=== PATIENT | female | born 1990 | race Caucasian/White ===

== ENCOUNTER 2016-06-29 23:09 | Inpatient (IN) | payer OTHER ==
[~2016-06-29] VITALS: Ht 149.9 cm; Wt 57.5 kg
[2016-06-29 23:13] VITALS: BP 132/97; PULSE 108; RESP 18; O2SAT 100
[2016-06-30] VITALS (13 sets, daily range): BP systolic 100–128; BP diastolic 70–88; PULSE 81–102; RESP 16–20; O2SAT 93–100
--- NOTE | 2016-06-30 00:06 | ED.REPORT ---
HPI-General Illness Date of Service June 30, 2016 ED Provider: Albaro Chamberlain MD Pt is a 26 y.o. female who presents to the ED c/o hematuria onset 4 days ago. Pt reports associated fever, dysuria, abdominal pain, pelvic pain, bloating, and diarrhea. She reports a hx of kidney stones and states her current symptoms are similar. She endorses meth and IV heroin use. Nursing Notes Stated Complaint: BLOOD IN URINE Chief Complaint: Back Pain or Injury Nursing Notes Reviewed: Yes Allergies: Uncoded Allergies: KCLOR (Allergy, Mild, "Body tenses", 06/29/16) General Time Seen by MD: 23:48 Chief Complaint Other (Hematuria) Hx Obtained From: Patient Arrived By: Walk-in Sudden in Onset?: Yes Onset Occurred: 4 days ago Symptom Duration: Since onset Location: : Abdomen: Back Quality: Painful Severity: Current: Severe Severity: Maximum: Severe Recent Healthcare: No recent doctor visit, No recent hospitalization Past Medical History Past Medical History None reported Past Surgical History None reported Social History Drug Use: IV drugs, Meth, THC Ambulatory Status Independent Review of Systems Bloating Full Review of Systems Constitutional: Reports: Fever GI: Reports: Abdominal pain, Diarrhea Female: Reports: Dysuria, Hematuria, Pelvic pain Musculoskeletal: Reports: Back pain Complete sys rev & neg: except as marked. Physical Exam Vital Signs Vital Signs Date Time Temp Pulse Resp B/P Pulse Ox O2 Delivery O2 Flow Rate FiO2 06/30/16 06:22 36.8 99 18 120/74 99 Room Air 06/30/16 02:24 36.5 102 18 128/88 99 Room Air 06/29/16 23:13 36.0 108 18 132/97 100 Room Air Initial VS: Reviewed, Vital signs abnormal Extremities: Vascular intact, Neuro intact Neurologic: Alert, Oriented, Nonfocal Psychiatric: Mood/affect normal, Behavior normal, Normal thought content General/Constitutional: Awake, Alert Appearance / Presentation: Positive: Pale ENT: Atraumatic, Airway patent Facial puffiness Respiratory / Chest: Atraumatic, Breath sounds NL, Breath sounds = bilat, No respiratory distress Cardiovascular: Regular rhythm, Heart sounds NL, Peripheral circulation NL Heart Rate / Rhythm: Positive: Tachycardia Abdomen: Atraumatic, Soft, No guarding, No rebound Tenderness/Guarding/Rebound: Positive: Tender LLQ..., Tender RLQ... Bowel Sounds / Distention: Positive: Distention mild Back: Atraumatic, Inspection NL Diffuse back tenderness Skin: Warm, Intact Rash / Lesion Notes: Multiple track arthur and black tatooing. Lots of small hotspots and foreign body reactions from muscling, especially in bilateral upper arms. Rash / Lesion Pattern: Positive: Track arthur Interpretation & Diagnostics Lab Results Interpretation Result Diagram: 06/30/16 0115 06/30/16 0115 Test 06/30/16 01:15 06/30/16 02:20 06/30/16 02:30 White Blood Count 9.5th/mm3 (3.8-10.1) Red Blood Count 3.12mil/mm3 (3.90-5.20) Hemoglobin 9.6g/dL (12.0-15.6) Hematocrit 29.9% (35.0-46.0) Mean Corpuscular Volume 95.8fL (81-100) Mean Corpuscular Hemoglobin 30.8pg (27.0-35.0) Mean Corpuscular Hemoglobin Concent 32.1% (32.0-37.0) Red Cell Distribution Width 13.1% (12.3-15.4) Platelet Count 404bil/L (150-400) Neutrophils (%) (Auto) 67.2% (40-74) Lymphocytes (%) (Auto) 24.3% (14-46) Monocytes (%) (Auto) 6.5% (4-12) Eosinophils (%) (Auto) 1.3% (0-5) Basophils (%) (Auto) 0.4% (0-3) Prothrombin Time 11.1sec (8.1-12.5) Prothromb Time International Ratio 1.04ratio Sodium Level 136mEq/L (134-144) Potassium Level 3.5mEq/L (3.5-5.2) Chloride Level 94mEq/L (97-108) Carbon Dioxide Level 26mmol/L (18-29) Blood Urea Nitrogen 15mg/dL (6-20) Creatinine 1.44mg/dL (0.57-1.00) Estimat Glomerular Filtration Rate 62mL/min (>59) Glucose Level 209mg/dL (60-99) Lactic Acid Level 1.0mmol/L (0.4-2.0) Calcium Level 8.8mg/dL (8.5-10.1) Magnesium Level 2.1mg/dL (1.6-2.6) Total Bilirubin 0.2mg/dL (0.0-1.2) Aspartate Amino Transf (AST/SGOT) 104U/L (0-50) Alanine Aminotransferase (ALT/SGPT) 62U/L (0-32) Alkaline Phosphatase 259U/L (25-150) Total Protein 8.5g/dL (6.4-8.4) Albumin 4.0g/dL (3.4-5.0) Lipase 13U/L (13-60) Hold Urine Received (Received) Urine Color Bloody (YELLOW) Urine Appearance Cloudy (CLEAR,HAZY) Urine pH 5.5 (5.0-8.0) Urine Specific Lafe 1.025 (1.003-1.035) Urine Protein 100mg/dL (NEG,TRACE) Urine Glucose (UA) Negativemg/dL (NEGATIVE) Urine Ketones Negativemg/dL (NEGATIVE) Urine Occult Blood Large (NEGATIVE) Urine Nitrite Positive (NEGATIVE) Urine Bilirubin Negative (NEGATIVE) Urine Urobilinogen Normalmg/dL (NORMAL) Urine Leukocyte Esterase Negative (NEGATIVE) Urine RBC Packed/hpf (0-2) Urine WBC 11-50/hpf (0-5) Urine Epithelial Cells Few/hpf (NONE-MOD) Urine Crystals None seen (NONE SEEN) Urine Bacteria Moderate/hpf (NONE-FEW) Urine Hyaline Casts None/lpf (NONE) Urine Granular Casts None seen (NONE SEEN) Urine Waxy Casts None seen (NONE SEEN) Urine Red Blood Cell Casts None seen (NONE SEEN) Urine White Blood Cell Casts None seen (NONE SEEN) Urine Mucus None seen (None Seen) Urine Trichomonas None seen (NONE SEEN) Urine Yeast None (NONE SEEN) Urinalysis Comment Urine Culture Reflexed Not indicated Lab Results Interpretation: Anemia, elevated creatinine,, elevated nonfasting glucose, normal lactic acid. Urinalysis is consistent with UTI. Drug Screen / Level Interp Urine positive opiate, Urine positive THC, Urine pos amphetamines CT Abd / Pelvis Interpretation IMPRESSION: 2mm right renal stone. Enlarged right kidney with perinephric stranding, pyelonephritis should be considered in the proper clinical setting. Diffuse bladder wall thickening. In the proper clinical setting, cystitis should be considered. Radiologist: Lei Feliz MD Re-Eval/Medical Decision Med Decision/Clinical Course 26-year-old female presents with hematuria and fevers and just general malaise. She is found to be quite anemic, baseline uncertain. She also has a UTI. CT KUB was done to rule out an obstructing stone and was negative. It did show signs of urinary tract infection/pileup. We were unable to obtain venous access. I feel the PICC line would be wiser choice than central line for this patient. She will get one placed this morning. She was given first dose of and about X IM. She will be admitted to the hospital service. Please see inpatient chart for details. Source of Hx: Old records Time of Eval: 00:01 Re-Evaluation/Progress Note: Discussed need for CT imaging, pt understands and agrees with plan. Time of Eval: 05:41 Re-Evaluation/Progress Note: Pt rechecked. Pt is resting comfortably. Discussed plan for admit, pt understands and agrees with plan. Consultation : Referral / Consult Name: Lance Mendiola MD Consulted With: Hospitalist Call Returned at: 05:51 Vacation Sales Advisor: Accepts admit Note: Discussed pt condition. Accepts admit. He would like pt to have a PICC line in place before transfer to the floor. Counseled Regarding: Diagnosis, Lab results, Need for follow-up, When/why to return to ED Discharge & Departure Primary Impression: UTI (urinary tract infection) Urinary tract infection type: acute pyelonephritis Qualified Code: N10 - Acute pyelonephritis Additional Impressions: Polysubstance abuse Anemia Anemia type: unspecified type Qualified Code: D64.9 - Anemia, unspecified Disposition: ADMITTED TO HOSPITAL Discharge Condition All VS Reviewed: Yes Condition: Improved Referrals: [facility] (PCP) Ninfa Attestation Portions of this note were transcribed by Genie Velasquez. I, Dr. Chamberlain personally performed the history, physical exam and medical decision-making; I reviewed and confirmed the accuracy of the information in the transcribed note. Signed by: Ninfa Gómez, 06/30/16 and 0525 copies to: [facility] Albaro Chamberlain MD June 30, 2016 00:05 GENIE VELASQUEZ June 30, 2016 00:13
[2016-06-30 01:24] LABS: BASOPHILS % (AUTO) 0.4 % (0-3); EOSINOPHILS % (AUTO) 1.3 % (0-5); MONOCYTES % (AUTO) 6.5 % (4-12); Mean Corpuscular Hemoglobin 30.8 pg (27.0-35.0); Mean Corpuscular Volume 95.8 fL (81-100); NEUTROPHILS % (AUTO) 67.2 % (40-74); Platelet Count 404 bil/L (150-400)
[2016-06-30] MEDS ORDERED: cefTRIAXone Inj 1,000 MG, Lidocaine PF 1% Inj 2.1 ML in Syringe 0 EACH IM ONE (01:35)
[2016-06-30 01:41] LABS: INR 1.04 ratio
[2016-06-30 02:14] LABS: Magnesium 2.1 mg/dL (1.6-2.6)
[2016-06-30 03:52] LABS: APPEARANCE,URINE CLOUDY (CLEAR,HAZY); COLOR,URINE BLOODY (YELLOW); PH,URINE 5.5 (5.0-8.0)
[2016-06-30 03:53] LABS: OCCULT BLOOD,URINE LARGE (NEGATIVE); UROBILINOGEN,URINE NORMAL (NORMAL)
[2016-06-30] MEDS ORDERED: Ondansetron 2 mg/mL 2 mL Inj IVPUSH PRN (06:50)
[2016-06-30] MEDS ORDERED: Alum-Mag Hydrox-Simeth 30 mL Suspension PO PRN ×2 (06:50→09:05)
[2016-06-30] MEDS ORDERED: Sodium Chloride LOK Flush 10 mL Syringe IVFLUSH PRN ×2 (06:50)
--- NOTE | 2016-06-30 08:00 | DRSVH ---
PROCEDURE: CT KUB ([id number]) INDICATIONS: hematuria TECHNIQUE: Noncontrast 5 mm thick sections acquired from the diaphragms to the symphysis. 5 mm thick coronal an d sagittal reformats were then performed. For radiation dose reduction, the following was used: aut omated exposure control, adjustment of mA and/or kV according to patient size. COMPARISON: None. FINDINGS: Image quality: Excellent. Lung bases: Lung bases are clear. Heart size is normal. Urinary system: Left kidney is normal in size. Right kidney is somewhat prominent with some stranding around it. There is a 2 mm central nonobstructing right renal calculus. Hydronephrosis of either kid aide is not appreciated.. Both ureters appear non-dilated throughout their expected courses. Bladder wall thickness is normal; no calcified bladder stones. Other solid organs: Liver and spleen are normal in size. Gallbladder is within normal limits. Panc reas is normal in contours. No adrenal nodules. Peritoneum and bowel: Unenhanced bowel loops demonstrate normal wall thickness and caliber. No free fluid or air. Nodes and vessels: No retroperitoneal or mesenteric adenopathy by size criteria. Aorta and inferior vena cava are normal in caliber. Abdominal wall: No ventral hernias. Pelvis: No free pelvic fluid. No inguinal hernias or adenopathy. Bones: No suspicious bony lesions. No vertebral body compression fractures. IMPRESSION: 1. Slightly prominent right kidney with stranding around it in the retroperitoneum. There is also sli ght increased density in the mesentery in the stranding appears to arise from the region of the kidne y extends down in the retroperitoneum in the area of the cecum. No appendix is identified normal or a bnormal. Hydronephrosis is not appreciated and no obstruction or ureteral stone is seen. There is a 2 mm central nonobstructing right renal calculus. These findings would suggest right-sided pyelonephritis. Clinical correlation needed. 2. Bilateral prominent appearing ovaries with multiple small probably follicular type cysts. Dictated by: Petros Buchanan M.D. on 06/30/2016 at 7:50 this report corresponds to the findings of niko murphy preliminary NSR report. Approved by: Petros Buchanan M.D. on 06/30/2016 at 7:58
[2016-06-30] MEDS ORDERED: 0.9% Sodium Chloride 1,000 ML IV SCH (09:05)
[2016-06-30 09:36] LABS: TROPONIN T 0.016 ug/L (0.0-0.011)
[2016-06-30 09:47] LABS: Magnesium 2.2 mg/dL (1.6-2.6); Phosphorus 2.9 mg/dL (2.5-4.9)
[2016-06-30] MEDS: Piperacillin-Tazo 3.375 Gm Inj 3.375 GM in Dextrose 5% Minibag Plus 50 ML IV SCH ×3 (09:50→23:49)
--- NOTE | 2016-06-30 10:38 | PCM.HPMED ---
Subjective Date of Service June 30, 2016 Primary Provider: Admitting Physician: Mauro Ragland MD Primary Care Physician: [facility] Attending Physician: Mauro Ragland MD Admit Status: From the Emergency Department, Full Admit, Critical Care Chief Complaint: Hematuria History of Present Illness: Miri Beasley is a 26 year old woman with past medical history significant for kidney stones since age 9 requiring percutaneous drainage, recurrent pyelonephritis, as well as polysubstance abuse including heroin IVDU who presented to the [facility] ED with hematuria for 6 days. She also note dysuria that was very severe however she did not come in because she was afraid she "was dying." She does not know the cause of her recurrent kidney stones. She notes fevers, chills, nausea, vomiting, dizziness but denies any loss of consciousness. Her boyfriend who accompanies her states she appears quite pale. She denies any chest pain, shortness of breath, cough, or rash. In the ED the patient was noted to be tachycardic. She was given one dose of Rocephin IM. Review of Systems: A comprehensive review of systems was conducted with the patient and found to be negative except as above in the History of Present Illness. Allergies Uncoded Allergies: KCLOR (Allergy, Mild, "Body tenses", 06/29/16) Home Medications She is supposed to be taking Levothyroxine 175 mcg but has not been. PMH Recurrent kidney stones Recurrent pyelonephritis IVDU Hypothyroidism Surgical History Appendicitis Lithotripsy Family History No family history of kidney stones Social History Hx Alcohol Use: No Hx Substance Use: Yes (states she does marijuana) Hx Tobacco Use: Yes Smoking Status: Current Every Day Smoker, Heavy Tobacco Smoker Living Arrangement: Homeless Exam Vital Signs Vital Sign - Last Date Time Temp Pulse Resp B/P Pulse Ox O2 Delivery O2 Flow Rate FiO2 06/30/16 08:43 100 Room Air 06/30/16 08:20 36.3 95 16 100/70 Exam General: In moderate acute distress, pale, appropriately interactive, laying in a hospital bed HEENT: Normocephalic, atraumatic. External ears without defect. Pupils equal, round, and reactive to light and accommodation. Anicteric sclerae, moist conjunctivae, and no lid lag. Oropharynx free of erythema and cobble stoning with moist mucosa. Neck: Supple with full range of motion. No jugular venous distension. No bruits. No lymphadenopathy or thyromegaly. Cardiovascular: Regular rhythm with no murmurs, rubs, or gallops appreciated. Tachycardia. Pulmonary: Clear to auscultation bilaterally with no crackles, wheezes, or rhonchi. Normal respiratory effort with no use of accessory muscles. Abdomen: Bowel tones present. Soft, nondistended. No hepatosplenomegaly or masses appreciated. Tenderness over suprapubic area. CVA tenderness. Extremities: No clubbing, cyanosis, edema, or lymphadenopathy appreciated. Skin: Normal temperature, turgor, and texture. Diffuse lacy rash. Bruising on the knees and arms. Track arthur on bilateral arms. Neurological: Cranial nerves grossly intact. Normal muscle strength, tone, and bulk. Reflexes, coordination, and sensory function within normal limits. No known gait impairment. Psychiatric: Anxious, afraid. Alert and oriented to person, place, and time. Lab and Diagnostics Result Diagram: 06/30/1611406/30/16114 X-Rays, CTs and MRIs CT KUB IMPRESSION: 1. Slightly prominent right kidney with stranding around it in the retroperitoneum. There is also slight increased density in the mesentery in the stranding appears to arise from the region of the kidney extends down in the retroperitoneum in the area of the cecum. No appendix is identified normal or abnormal. Hydronephrosis is not appreciated and no obstruction or ureteral stone is seen. There is a 2 mm central nonobstructing right renal calculus. These findings would suggest right-sided pyelonephritis. Clinical correlation needed. 2. Bilateral prominent appearing ovaries with multiple small probably follicular type cysts. Dictated by: Petros Buchanan M.D. on 06/30/2016 at 7:50 this report corresponds to the findings of the preliminary NSR report. Assessment & Plan Miri Beasley is a 26 year old woman with past medical history significant for kidney stones since age 9 requiring percutaneous drainage, recurrent pyelonephritis, as well as polysubstance abuse including heroin IVDU who presented to the [facility] ED with hematuria for 6 days. Sepsis secondary to pyelonephritis evidenced by HR of 106, T 36.0 -2 L NS bolus and will reassess -First lactate negative, will recheck -Blood cultures, urine cultures, procalcitonin Severe pyelonephritis, likely secondary to nephrolithiasis, complicated by acute kidney injury -Given one dose of ceftriaxone, will give Zosyn for broader coverage -Presenting with hematuria, will continue to monitor Hgb Acute kidney injury -May be multifactorial from prerenal azotemia, sepsis, pyelonephritis -IVF as above -Trend Cr Polysubstance abuse -Social work consult -Patient would like to discuss methadone, for now will treat pain with IV morphine in the acute phase Livido reticularis, chronic -Possibly due to thyroid disease. Hepatitis is on the differential -Will check hepatitis panel, especially in the setting of elevated LFTs, HIV Elevated total protein -Possibly representing immunoglobulins and acute reaction, will trend. Elevated troponin of uncertain significance -In the setting of IVDU may represent endocarditis, will recheck tomorrow -EKG, CXR, blood cultures Nicotine use -Patch offered Patient is admitted under observation status with expected length of stay less than 2 midnights due to severity of presenting symptoms, risk of adverse event, and complexity of treatment plan. Time spent 60 min Attending Statement Patient seen and examined with house staff. Agree with all attached documentation. Sania Gillette DO June 30, 2016 09:10 Mauro Ragland MD June 30, 2016 14:31
--- NOTE | 2016-06-30 11:34 | DRSVH ---
PROCEDURE: X-RAY CHEST ONE VIEW ([id number]) INDICATIONS: endocarditis TECHNIQUE: One view of the chest was acquired. COMPARISON: None. FINDINGS: Surgical changes and devices: None. Lungs and pleura: No pleural effusions or pneumothorax. Lungs are clear. Mediastinum: Mediastinal contours appear normal. Heart size is normal. Bones and chest wall: No suspicious bony lesions. Overlying soft tissues appear unremarkable. IMPRESSION: No acute cardiopulmonary disease. Dictated by: Ryan Pruitt [facility] Interpreted: Petros Buchanan MD on 06/30/2016 at 11:33 Transcribed by: JAYME on 06/30/2016 at 11:34 Approved by: Petros Buchanan M.D. on 06/30/2016 at 12:16
[2016-06-30] MEDS ORDERED: MetoCLOpramide 5 mg/mL 2 mL Inj ONE (13:17)
[2016-06-30] MEDS ORDERED: Ondansetron 2 mg/mL 2 mL Inj ONE (13:17)
[2016-06-30] MEDS ORDERED: Dexamethasone 4 mg/mL Inj ONE (13:17)
[2016-06-30] MEDS ORDERED: Propofol 10,000 mCg/mL 20 mL Inj ONE (13:17)
[2016-06-30 13:18] LABS: APPEARANCE,URINE CLOUDY (CLEAR,HAZY); COLOR,URINE DARK YELLOW (YELLOW); PH,URINE 5.5 (5.0-8.0)
[2016-06-30 13:19] LABS: OCCULT BLOOD,URINE LARGE (NEGATIVE)
[2016-06-30 13:20] LABS: UROBILINOGEN,URINE NORMAL (NORMAL)
[2016-06-30] MEDS ORDERED: LEVO125T2 PO (15:23)
[2016-06-30] MEDS: 0.9% Sodium Chloride 1,000 ML IV SCH ×3 (17:19→23:50)
[2016-06-30] MEDS: Sodium Chloride LOK Flush 10 mL Syringe IVFLUSH SCH ×2 (17:22→23:50)
[2016-06-30] MEDS: Heparin 5,000 Unit/mL Inj SUBQ SCH ×2 (17:22→23:50)
[2016-07-01 03:04] VITALS: BP 104/73; PULSE 84; RESP 16; O2SAT 92
[2016-07-01 03:26] LABS: BASOPHILS % (AUTO) 0.3 % (0-3); EOSINOPHILS % (AUTO) 2.3 % (0-5); MONOCYTES % (AUTO) 6.8 % (4-12); Mean Corpuscular Hemoglobin 30.4 pg (27.0-35.0); Mean Corpuscular Volume 97.5 fL (81-100); NEUTROPHILS % (AUTO) 58.3 % (40-74); Platelet Count 359 bil/L (150-400)
[2016-07-01] MEDS: Ondansetron 2 mg/mL 2 mL Inj IVPUSH PRN ×3 (04:53→20:48)
[2016-07-01] MEDS: 0.9% Sodium Chloride 1,000 ML IV SCH ×3 (06:32→22:40)
[2016-07-01 08:00] VITALS: BP 107/77; PULSE 78; PULSE 83; RESP 18; O2SAT 96
[2016-07-01 08:26] LABS: Bilirubin, Direct 0.2 mg/dL (0.0-0.3)
[2016-07-01] MEDS: Piperacillin-Tazo 3.375 Gm Inj 3.375 GM in Dextrose 5% Minibag Plus 50 ML IV SCH ×3 (09:18→23:46)
[2016-07-01] MEDS: Sodium Chloride LOK Flush 10 mL Syringe IVFLUSH SCH ×3 (09:21→20:49)
[2016-07-01] MEDS: Heparin 5,000 Unit/mL Inj SUBQ SCH ×3 (09:21→23:46)
--- NOTE | 2016-07-01 11:17 | PCM.PNMED ---
Subjective Date of Service July 01, 2016 Subjective Miri Beasley is a 26 year old woman with past medical history significant for kidney stones since age 9 requiring percutaneous drainage, recurrent pyelonephritis, as well as polysubstance abuse including heroin IVDU who presented to the [facility] ED with hematuria for 6 days. Now under treatment for sepsis, pyelonephritis. Hospital day #2. Overnight: No acute events. Today: She states she is feeling better. Her hematuria has resolved but the dysuria, suprapubic pain and back pain continue. She still feels quite fatigued and nauseous. She denies any fevers or chills. The remainder of ROS is negative except as noted above. Exam Vital Signs Vital Sign - Last Date Time Temp Pulse Resp B/P Pulse Ox O2 Delivery O2 Flow Rate FiO2 07/01/16 08:00 78 07/01/16 08:00 36.6 18 107/77 96 Room Air Intake and Output 06/30/16 06/30/16 07/01/16 Cumulative From/Thru 15:00 23:00 07:00 06/29/16 23:13 - 07/01/16 06:01 Intake Total 360 ml 4161 ml 2265 ml 6786 ml Output Total 250 ml 250 ml 800 ml 1300 ml Balance 110 ml 3911 ml 1465 ml 5486 ml Intake Oral 360 ml 760 ml 836 ml 1956 ml IV Total 3401 ml 1429 ml 4830 ml Output Urine Total 250 ml 250 ml 800 ml 1300 ml # Voids 3 3 Exam General: In no acute distress, pale, appropriately interactive, laying in a hospital bed HEENT: Normocephalic, atraumatic. External ears without defect. Pupils equal, round, and reactive to light and accommodation. Anicteric sclerae, moist conjunctivae, and no lid lag. Oropharynx free of erythema and cobble stoning with moist mucosa. Periorbital edema. Neck: Supple with full range of motion. No jugular venous distension. No bruits. No lymphadenopathy or thyromegaly. Cardiovascular: Regular rate and rhythm with no murmurs, rubs, or gallops appreciated. Pulmonary: Clear to auscultation bilaterally with no crackles, wheezes, or rhonchi. Normal respiratory effort with no use of accessory muscles. Abdomen: Bowel tones present. Soft, nondistended. No hepatosplenomegaly or masses appreciated. Tenderness over suprapubic area. CVA tenderness bilaterally. Extremities: No clubbing, cyanosis, edema, or lymphadenopathy appreciated. Pretibial edema. Skin: Normal temperature, turgor, and texture. Diffuse lacy rash. Bruising on the knees and arms. Track arthur on bilateral arms. Neurological: Cranial nerves grossly intact. Normal muscle strength, tone, and bulk. Reflexes, coordination, and sensory function within normal limits. No known gait impairment. Psychiatric: Anxious, afraid. Alert and oriented to person, place, and time. IVs and Medications Medications Reviewed: Medications were reviewed in detail Lab and Diagnostics Result Diagram: 07/01/1631907/01/16 032 X-Rays, CTs and MRIs CT KUB IMPRESSION: 1. Slightly prominent right kidney with stranding around it in the retroperitoneum. There is also slight increased density in the mesentery in the stranding appears to arise from the region of the kidney extends down in the retroperitoneum in the area of the cecum. No appendix is identified normal or abnormal. Hydronephrosis is not appreciated and no obstruction or ureteral stone is seen. There is a 2 mm central nonobstructing right renal calculus. These findings would suggest right-sided pyelonephritis. Clinical correlation needed. 2. Bilateral prominent appearing ovaries with multiple small probably follicular type cysts. Dictated by: Petros Buchanan M.D. on 06/30/2016 at 7:50 this report corresponds to the findings of the preliminary NSR report. X-RAY CHEST ONE VIEW IMPRESSION: No acute cardiopulmonary disease. Dictated by: Ryan Pruitt [facility] Interpreted: Petros Buchanan MD on 06/30/2016 at 11:33 Assessment & Plan Miri Beasley is a 26 year old woman with past medical history significant for kidney stones since age 9 requiring percutaneous drainage, recurrent pyelonephritis, as well as polysubstance abuse including heroin IVDU who presented to the [facility] ED with hematuria for 6 days. Now under treatment for sepsis, pyelonephritis. Hospital day #2. Sepsis secondary to pyelonephritis evidenced by HR of 106, T 36.0 -3 L NS bolus received, now on 150 mL/hr maintenance NS -lactate initially trended up then normalized. -Blood cultures, urine cultures pending -Procalcitonin negative, which is not always indicative of an absence of infection. Severe pyelonephritis, likely secondary to nephrolithiasis, complicated by acute kidney injury -Given one dose of ceftriaxone, will give Zosyn for broader coverage -Presenting with hematuria, now resolved -Awaiting culture results and sensitivities Acute kidney injury, present on admission, improving -May be multifactorial from prerenal azotemia, sepsis, pyelonephritis -IVF as above -Trend Cr Polysubstance abuse -Social work consult, she is scheduled to see a brownfield redevelopment specialist -Patient would like to discuss methadone, for now will treat pain with IV morphine in the acute phase Livido reticularis, chronic -Possibly due to thyroid disease. Hepatitis is on the differential -Will check hepatitis panel, especially in the setting of elevated LFTs, HIV Protein malnutrition -Likely due to poor intake, will order nutritional consultation -Total protein decreased once patient is fluid resuscitated Elevated troponin of uncertain significance -In the setting of IVDU may represent endocarditis however EKG and CXR were unremarkable Nicotine use -Patch offered Elevated liver enzymes -Alk phos increased more today, patient denies any abdominal pain and in the setting of a normal bilirubin doubtful to represent biliary tree pathology -Will continue to monitor -Hepatitis panel pending DISPO: Anticipate patient will be in house for 2-3 more days. Attending Statement Patient seen and examined with house staff. Agree with all attached documentation. Sania Gillette DO July 01, 2016 11:17 Mauro Ragland MD July 05, 2016 09:06
[2016-07-01 12:00] VITALS: BP 117/87; PULSE 93; RESP 18; O2SAT 96
[2016-07-01 16:00] VITALS: BP 100/72; PULSE 82; RESP 18; O2SAT 86
[2016-07-01 16:05] VITALS: O2SAT 92
--- NOTE | 2016-07-01 19:23 | PCM.CHPMED ---
Subjective Date of Service: July 01, 2016 Provider requesting consult: Sania Gillette DO Primary Physician: Admitting Physician: aMuro Ragland MD Primary Care Physician: [facility] Attending Physician: Mauro Ragland MD Chief Complaint: Chief Complaint: Initial Endocrinology Consultation: Asked by to consult regarding this 26-year-old woman with chronic hypothyroidism who presents with myxedema in the setting of acute pyelonephritis. Patient currently complains of fatigue, confusion and flank/abdominal discomfort. History of Present Illness: The patient carries a diagnosis of hypothyroidism which began at age 7. She is taken thyroid hormone since that time. She has also experience substance abuse and psychological difficulties; hence, her compliance with thyroxine replacement therapy has been variable. She states that she has been without thyroid hormone for at least 2 months. She has difficulty describing hypothyroid symptoms but feels that her current mental confusion and fatigue may be due to low thyroid hormone. She is otherwise symptomatic with flank pain and abdominal discomfort related to recurrent urinary infection. On thyroid review of systems: She feels mentally sluggish. She endorses variable heat and cold intolerance. She notes increased puffiness around her eyes which is not normal for her. Her skin is dry. She does not endorse constipation. Menstrual periods have been irregular for many years. Review of Systems: Complete review of systems was performed. Significant findings are noted in history of present illness. Incidental findings include back pain, hand erythema with occasional cyanotic appearance. PMH Past Medical History # Hypothyroidism # Nephrolithiasis - status post percutaneous nephrostomy # Recurrent pyelonephritis # polysubstance abuse # Tobacco dependence Allergies: Coded Allergies: cefaclor (Verified Allergy, Intermediate, muscle rigidity, 06/30/16) Family History Family History No thyroid disease. No other autoimmune diseases. Social History Hx Alcohol Use: NoHx Substance Use: Yes (IV heroin, meth, marijuana)Hx Tobacco Use: Yes Smoking Status: Current Every Day Smoker Heavy Tobacco Smoker Living Arrangement: Homeless Exam Vital Signs Vital Sign - Last Date Time Temp Pulse Resp B/P Pulse Ox O2 Delivery O2 Flow Rate FiO2 07/01/16 16:05 92 Nasal Cannula 2.00 07/01/16 16:00 36.9 82 18 100/72 Intake and Output 06/30/16 06/30/16 07/01/16 Cumulative From/Thru 15:00 23:00 07:00 06/29/16 23:13 - 07/01/16 06:01 Intake Total 360 ml 4161 ml 2265 ml 6786 ml Output Total 250 ml 250 ml 800 ml 1300 ml Balance 110 ml 3911 ml 1465 ml 5486 ml Intake Oral 360 ml 760 ml 836 ml 1956 ml IV Total 3401 ml 1429 ml 4830 ml Output Urine Total 250 ml 250 ml 800 ml 1300 ml # Voids 3 3 General: Pale and simona appearing, no acute distress HEENT: Marked periorbital edema, sclerae anicteric, oral mucosa moist Neck: no JVD, thyroid is nonpalpable Chest: clear to auscultation Cardiac: S1S2, no murmur Abdomen: BS normal, non-tender Extremities: Hands with palmar and digital erythema, no pitting edema; skin is dry Neuro: A&O with slightly slow, cranial nerves symmetric, motor strength 5/5, coordination normal; reflexes are diminished, with very prolonged relaxation phase Lab and Diagnostics Labs TSH = 427, free T4 = less than 0.1 Result Diagram: 07/01/16 0320 07/01/16 0320 Assessment & Plan Assessment Ms. Beasley presents with myxedema manifesting as mental sluggishness, but not does not have myxedema coma for which reduced mental status with severe bradycardia, hypothermia and hypotension would be diagnostic. Although her physical findings are impressive (periorbital edema, low pitched voice, hyporeflexive), and her TSH elevation is extraordinary, she seems clinically stable. For this reason aggressive parenteral thyroid supplementation that is recommended for myxedema coma (e.g. 500-800 g intravenous levothyroxine or 25 g every 12 hours liothyronine) is unlikely to provide significant benefit. I see no signs of significant GI dysfunction, hence she can continue with oral thyroxine replacement. I think several days of loading dose would be helpful in expediting her return to her functional status. Recommendations: - Levothyroxine 300 mg daily 3 days - Return to her usual supplement thereafter - Observe caution and minimize use of hepatic metabolized anesthetic or sedative medications - Overt parenteral hypotonic solutions due to risk of hyponatremia - Encouraged outpatient compliance with levothyroxine, and follow-up with her usual primary care provider Thank you for this interesting consult. Please contact me with any questions at [phone]. Problems: Time spent 50 minutes Jaciel Samuel MD July 01, 2016 19:24
[2016-07-01 20:41] VITALS: BP 99/80; PULSE 89; RESP 18; O2SAT 97
[2016-07-02] VITALS (9 sets, daily range): BP systolic 104–119; BP diastolic 70–86; PULSE 69–83; RESP 12–18; O2SAT 91–100
[2016-07-02 02:09] LABS: Hepatitis A Antibody IgM Negative (Negative); Hepatitis B Core Antibody IgM Negative (Negative)
[2016-07-02] MEDS: 0.9% Sodium Chloride 1,000 ML IV SCH ×2 (05:22→16:34)
[2016-07-02] MEDS: Heparin 5,000 Unit/mL Inj SUBQ SCH ×2 (08:30→16:56)
[2016-07-02] MEDS: Sodium Chloride LOK Flush 10 mL Syringe IVFLUSH SCH ×2 (08:30→16:30)
[2016-07-02] MEDS: Piperacillin-Tazo 3.375 Gm Inj 3.375 GM in Dextrose 5% Minibag Plus 50 ML IV SCH ×2 (08:36→16:30)
[2016-07-02] MEDS ORDERED: Magnesium Hydroxide 10 mL Oral Concentration PO ONE (15:40)
[2016-07-02 16:18] LABS: BASOPHILS % (AUTO) 0.8 % (0-3); EOSINOPHILS % (AUTO) 1.7 % (0-5); Mean Corpuscular Hemoglobin 30.2 pg (27.0-35.0); Mean Corpuscular Volume 97.9 fL (81-100); NEUTROPHILS % (AUTO) 59.3 % (40-74); Platelet Count 323 bil/L (150-400)
[2016-07-02] MEDS ORDERED: cefTRIAXone Inj 1,000 MG, Lidocaine PF 1% Inj 2.1 ML in Syringe 0 EACH IM ONE (17:00)
--- NOTE | 2016-07-02 17:24 | PCM.PNMED ---
Subjective Date of Service July 02, 2016 Subjective Miri Beasley is a 26 year old woman with past medical history significant for kidney stones since age 9 requiring percutaneous drainage, recurrent pyelonephritis, as well as polysubstance abuse including heroin IVDU who presented to the [facility] ED with hematuria for 6 days. Now under treatment for sepsis, pyelonephritis, myxedema. Hospital day #3 Overnight: No acute events. Today: She states she is feeling better today and she has more energy. She notes however that she still has bilateral flank pain as well as suprapubic tenderness and dysuria but this has improved. Periorbital edema is better as well; she states she can open her eyes more easily. She does note that she is very constipated. She denies any fevers, chills, shortness of breath, chest pain, nausea, vomiting or diarrhea. Today she lost her IV site after a multitude of attempts we were unable to restart another IV. The remainder of ROS is negative except as noted above. Exam Vital Signs Vital Sign - Last Date Time Temp Pulse Resp B/P Pulse Ox O2 Delivery O2 Flow Rate FiO2 07/02/16 16:16 36.9 78 16 119/81 100 Room Air 07/02/16 05:01 2.00 Intake and Output 07/01/16 07/01/16 07/02/16 Cumulative From/Thru 15:00 23:00 07:00 06/29/16 23:13 - 07/02/16 06:44 Intake Total 2920 ml 1707 ml 73783 ml Output Total 1800 ml 1230 ml 4330 ml Balance 1120 ml 477 ml 7083 ml Intake Oral 1120 ml 120 ml 3196 ml IV Total 1800 ml 1587 ml 8217 ml Output Urine Total 1800 ml 1230 ml 4330 ml # Voids 3 Exam General: In no acute distress, pale, appropriately interactive, laying in a hospital bed, She appears in better spirits today and is smiling HEENT: Normocephalic, atraumatic. External ears without defect. Pupils equal, round, and reactive to light and accommodation. Anicteric sclerae, moist conjunctivae, and no lid lag. Oropharynx free of erythema and cobble stoning with moist mucosa. Periorbital edema has improved today. Neck: Supple with full range of motion. No jugular venous distension. No bruits. No lymphadenopathy or thyromegaly. Cardiovascular: Regular rate and rhythm with no murmurs, rubs, or gallops appreciated. Pulmonary: Clear to auscultation bilaterally with no crackles, wheezes, or rhonchi. Normal respiratory effort with no use of accessory muscles. Abdomen: Bowel tones present. Soft, nondistended. No hepatosplenomegaly or masses appreciated. Tenderness over suprapubic area. CVA tenderness bilaterally. Extremities: No clubbing, cyanosis, edema, or lymphadenopathy appreciated. Pretibial edema. Skin: Normal temperature, turgor, and texture. Diffuse lacy rash. Bruising on the knees and arms. Track arthur on bilateral arms. A small developing abscess on the left deltoid. Neurological: Cranial nerves grossly intact. Normal muscle strength, tone, and bulk. Reflexes, coordination, and sensory function within normal limits. No known gait impairment. Psychiatric: Normal mood and affect. Alert and oriented to person, place, and time. IVs and Medications Medications Reviewed: Medications were reviewed in detail Lab and Diagnostics Result Diagram: 07/02/16 1610 07/02/16 1328 Microbiology SUKHDEEP CULT URINE Final 07/02/16-0906 Organism 1 ESCHERICHIA COLI U COLONY COUNT/QUANTITY >100,000 CFU/ml Cefazolin-predicts results for the oral agents, cefaclor,cefdinir, cefpodoximen, cefprozil, cefuroximne axetil, cephalexin and loracarbed when used for therapy of uncomplicated UTI's due to E. coli, K. pneumoniae, and Proteus mirabilis. Cefpodoxime, cefdinir and cefuroxime axetil may be tested individually because some isolates may be susceptible to these agents while testing resistant to cefazolin. (CLSI J094-T58 pg 53) 1. ESCHERICHIA COLI M.I.C Interp --------- ------ * AMOXICILLIN/CLAVULATE <=2 S * AMPICILLIN 8 S * CEFAZOLIN (CEPHALOSPORIN) UTI 4 S * CEFEPIME <=1 S * CEFTRIAXONE <=1 S * CEFUROXIME SODIUM 4 S * CIPROFLOXACIN <=0.25 S * ERTAPENEM <=0.5 S * GENTAMICIN <=1 S * IMIPENEM <=1 S * LEVOFLOXACIN <=0.12 S * NITROFURANTOIN <=16 S * TETRACYCLINE <=1 S * TOBRAMYCIN <=1 S * TRIMETHOPRIM/SULFAMETHOXAZOLE <=20 S X-Rays, CTs and MRIs CT KUB IMPRESSION: 1. Slightly prominent right kidney with stranding around it in the retroperitoneum. There is also slight increased density in the mesentery in the stranding appears to arise from the region of the kidney extends down in the retroperitoneum in the area of the cecum. No appendix is identified normal or abnormal. Hydronephrosis is not appreciated and no obstruction or ureteral stone is seen. There is a 2 mm central nonobstructing right renal calculus. These findings would suggest right-sided pyelonephritis. Clinical correlation needed. 2. Bilateral prominent appearing ovaries with multiple small probably follicular type cysts. Dictated by: Petros Buchanan M.D. on 06/30/2016 at 7:50 this report corresponds to the findings of the preliminary NSR report. X-RAY CHEST ONE VIEW IMPRESSION: No acute cardiopulmonary disease. Dictated by: Ryan Pruitt RRA Interpreted: Petros Buchanan MD on 06/30/2016 at 11:33 Assessment & Plan Miri Beasley is a 26 year old woman with past medical history significant for kidney stones since age 9 requiring percutaneous drainage, recurrent pyelonephritis, as well as polysubstance abuse including heroin IVDU who presented to the [facility] ED with hematuria for 6 days. Now under treatment for sepsis, pyelonephritis, myxedema. Hospital day #3 1. Severe pyelonephritis, likely secondary to nephrolithiasis, complicated by acute kidney injury -Given one dose of ceftriaxone in the ED without any reaction. -Antibiotic day 3, will switch Zosyn to IM ceftriaxone to narrow coverage as we have cultures indicating Escherichia coli that is pansensitive. However due to the loss of IV access for this patient we are forced to go with it IM route. We will proceed with 500 mg of IM ceftriaxone to be given into each buttock cheek once daily. At this point central venous access will likely cause more harm than good for 1-2 days more of IV antibiotics thus we will forego it. -Presenting with hematuria, now resolved 2. Acute kidney injury, present on admission, improving -May be multifactorial from prerenal azotemia, sepsis, pyelonephritis. Largely unchanged today however improved overall since her admission -As she has lost her IV access we will encourage by mouth intake of fluids. -We will continue to trend Cr daily. -If creatinine does not improve consider renal consult, or repeat imaging. 3. Myxedema, present on admission, improving -Dr. Samuel endocrinology was consulted. We thank him for his time and expertise. -Continue loading dose of PO levothyroxine 300 mg 3 days. -Reiterated to the patient the importance of compliance and follow-up with her severe hypothyroidism. 4. Sepsis secondary to pyelonephritis evidenced by HR of 106, T 36.0, present on admission, resolved -3 L NS bolus received, now on 150 mL/hr maintenance NS -lactate initially trended up then normalized. -Blood cultures negative 2 days, urine cultures as above -Procalcitonin negative, which is not always indicative of an absence of infection. 5. Acute Hepatitis C infection, present on admission -This likely explains the patient's upper trend in LFTs -Hepatitis C genotype ordered as well as viral load -She will need to establish with a primary care provider as well as with a GI doctor upon discharge. 6. Polysubstance abuse -Social work consult, she is scheduled to see a specialist physician -Patient would like to discuss methadone for discharge. 7. Livido reticularis, chronic -Possibly due to thyroid disease or IV drug abuse. 8. Protein malnutrition -Likely due to poor intake, ordered nutritional consultation -Total protein decreased once patient is fluid resuscitated 9. Elevated troponin of uncertain significance, present on admission, resolved -In the setting of IVDU may represent endocarditis however EKG and CXR were unremarkable 10. Nicotine use -Patch offered DISPO: Anticipate patient will be in house for 2-3 more days. Pain Evaluation: Adequate Pain Control GI Prophylaxis: Not indicated VTE Prophylaxis: Sub-Q Heparin (Unfractionated) Resuscitation Status: CPR: Attempt Resuscitation Attending Statement Patient seen and examined with Dr. Gillette. Chart reviewed and agree with the above progress note. Sania Gillette DO July 02, 2016 16:59 Gustavo Dumont MD July 02, 2016 18:43
[2016-07-03] VITALS (8 sets, daily range): BP systolic 99–109; BP diastolic 66–81; PULSE 66–78; RESP 16–19; O2SAT 95–99
[2016-07-03] MEDS: Sodium Chloride LOK Flush 10 mL Syringe IVFLUSH SCH ×6 (00:30→22:03)
[2016-07-03] MEDS: Heparin 5,000 Unit/mL Inj SUBQ SCH ×3 (00:46→16:25)
[2016-07-03] MEDS ORDERED: cefTRIAXone Inj 1,000 MG in Dextrose 5% Minibag Plus 50 ML IV SCH (09:00)
[2016-07-03] MEDS ORDERED: cefTRIAXone Inj 1,000 MG in Dextrose 5% Minibag Plus 50 ML IM SCH (14:25)
--- NOTE | 2016-07-03 15:00 | PCM.PNMED ---
Subjective Date of Service July 03, 2016 Subjective pt is lethargic slowly responded to questions but oriented, c/o mild suprapubic pain, mildly nauseated no vomiting Exam Vital Signs Vital Sign - Last Date Time Temp Pulse Resp B/P Pulse Ox O2 Delivery O2 Flow Rate FiO2 07/03/16 13:49 36.4 66 18 105/81 98 Room Air 07/02/16 05:01 2.00 Intake and Output 07/02/16 07/02/16 07/03/16 Cumulative From/Thru 15:00 23:00 07:00 06/29/16 23:13 - 07/03/16 06:09 Intake Total 2350 ml 100 ml 61117 ml Output Total 1800 ml 600 ml 6730 ml Balance 550 ml -500 ml 7133 ml Intake Oral 1900 ml 100 ml 5196 ml IV Total 450 ml 8667 ml Output Urine Total 1800 ml 600 ml 6730 ml # Voids 6 9 Exam calm, young female, bilateral periorbital swelling, no lid lag livedo reticularis throughout RRR, nl s1 s2 no mrg CTAB no w,c S,ND,NT,BS+, mild CVAT warm, trace edema IVs and Medications Medications Reviewed: Medications were reviewed in detail Lab and Diagnostics Result Diagram: 07/02/16 1610 07/02/16 1328 Microbiology SUKHDEEP CULT URINE Final 07/02/16-0906 Organism 1 ESCHERICHIA COLI U COLONY COUNT/QUANTITY >100,000 CFU/ml Cefazolin-predicts results for the oral agents, cefaclor,cefdinir, cefpodoximen, cefprozil, cefuroximne axetil, cephalexin and loracarbed when used for therapy of uncomplicated UTI's due to E. coli, K. pneumoniae, and Proteus mirabilis. Cefpodoxime, cefdinir and cefuroxime axetil may be tested individually because some isolates may be susceptible to these agents while testing resistant to cefazolin. (CLSI [id number] pg 53) 1. ESCHERICHIA COLI M.I.C Interp --------- ------ * AMOXICILLIN/CLAVULATE <=2 S * AMPICILLIN 8 S * CEFAZOLIN (CEPHALOSPORIN) UTI 4 S * CEFEPIME <=1 S * CEFTRIAXONE <=1 S * CEFUROXIME SODIUM 4 S * CIPROFLOXACIN <=0.25 S * ERTAPENEM <=0.5 S * GENTAMICIN <=1 S * IMIPENEM <=1 S * LEVOFLOXACIN <=0.12 S * NITROFURANTOIN <=16 S * TETRACYCLINE <=1 S * TOBRAMYCIN <=1 S * TRIMETHOPRIM/SULFAMETHOXAZOLE <=20 S X-Rays, CTs and MRIs CT KUB IMPRESSION: 1. Slightly prominent right kidney with stranding around it in the retroperitoneum. There is also slight increased density in the mesentery in the stranding appears to arise from the region of the kidney extends down in the retroperitoneum in the area of the cecum. No appendix is identified normal or abnormal. Hydronephrosis is not appreciated and no obstruction or ureteral stone is seen. There is a 2 mm central nonobstructing right renal calculus. These findings would suggest right-sided pyelonephritis. Clinical correlation needed. 2. Bilateral prominent appearing ovaries with multiple small probably follicular type cysts. Dictated by: Petros Buchanan M.D. on 06/30/2016 at 7:50 this report corresponds to the findings of the preliminary NSR report. X-RAY CHEST ONE VIEW IMPRESSION: No acute cardiopulmonary disease. Dictated by: Ryan Pruitt RR Interpreted: Petros Buchanan MD on 06/30/2016 at 11:33 Assessment & Plan Miri Beasley is a 26 year old woman with past medical history significant for kidney stones since age 9 requiring percutaneous drainage, recurrent pyelonephritis, as well as polysubstance abuse including heroin IVDU who presented to the [facility] ED with hematuria for 6 days. Now under treatment for sepsis, pyelonephritis, myxedema. Hospital day #3 1. Severe pyelonephritis, likely secondary to nephrolithiasis, complicated by acute kidney injury. s/p one dose of ceftriaxone in the ED without any reaction -pt clinically remained stable with current tx -Antibiotic day4, switched Zosyn to IM ceftriaxone to narrow coverage as we have cultures indicating Escherichia coli that is pansensitive. However due to the loss of IV access for this patient we are forced to go with it IM route. We will proceed with 500 mg of IM ceftriaxone to be given into each buttock cheek once daily. At this point central venous access will likely cause more harm than good for 1-2 days more of IV antibiotics thus we will forego it. -Presenting with hematuria, now resolved 2. Acute kidney injury, present on admission, improving -May be multifactorial from prerenal azotemia, sepsis, pyelonephritis. Largely unchanged today however improved overall since her admission -As she has lost her IV access we will encourage by mouth intake of fluids. -We will continue to trend Cr daily. -If creatinine does not improve consider renal consult, or repeat imaging. 3. Myxedema, present on admission, improving -Dr. Samuel endocrinology was consulted. We thank him for his time and expertise. -Continue loading dose of PO levothyroxine 300 mg 3 days until tomorrow, please decrease dosage tomorrow, ~1.7 mcg/kg/day, appreciate input -Reiterated to the patient the importance of compliance and follow-up with her severe hypothyroidism. 4. Sepsis secondary to pyelonephritis evidenced by HR of 106, T 36.0, present on admission, resolved -3 L NS bolus received, now on 150 mL/hr maintenance NS -lactate initially trended up then normalized. -Blood cultures negative 2 days, urine cultures as above -Procalcitonin negative, which is not always indicative of an absence of infection. 5. Acute Hepatitis C infection, present on admission -This likely explains the patient's upper trend in LFTs -Hepatitis C genotype ordered as well as viral load -She will need to establish with a primary care provider as well as with a GI doctor upon discharge. 6. Polysubstance abuse -Social work consult, she is scheduled to see a product specialist -Patient would like to discuss methadone for discharge. 7. Livido reticularis, chronic -Possibly due to thyroid disease or IV drug abuse. 8. Protein malnutrition -Likely due to poor intake, ordered nutritional consultation -Total protein decreased once patient is fluid resuscitated 9. Elevated troponin of uncertain significance, present on admission, resolved -In the setting of IVDU may represent endocarditis however EKG and CXR were unremarkable 10. Nicotine use -Patch offered DISPO: Anticipate patient will be in house for 2-3 more days. GI Prophylaxis: Not indicated VTE Prophylaxis: Sub-Q Heparin (Unfractionated) Resuscitation Status: CPR: Attempt Resuscitation Time spent 35min Annita Dumont MD July 03, 2016 14:56
[2016-07-03] MEDS: cefTRIAXone Inj 1,000 MG, Lidocaine PF 1% Inj 2.1 ML in Syringe 0 EACH IM SCH (16:18)
[2016-07-03] MEDS: Polyethylene Glycol (PEG) 17 Gm Powder PO PRN (16:18)
[2016-07-03] MEDS: Ondansetron 8 mg ODT Tablet PO PRN (22:03)
[2016-07-04] VITALS (8 sets, daily range): BP systolic 102–121; BP diastolic 69–84; PULSE 65–80; RESP 16–18; O2SAT 94–96
[2016-07-04] MEDS: Heparin 5,000 Unit/mL Inj SUBQ SCH ×3 (01:14→16:58)
[2016-07-04 06:55] LABS: BASOPHILS % (AUTO) 0.6 % (0-3); EOSINOPHILS % (AUTO) 1.4 % (0-5); MONOCYTES % (AUTO) 6.6 % (4-12); Mean Corpuscular Hemoglobin 30.8 pg (27.0-35.0); Mean Corpuscular Volume 96.8 fL (81-100); NEUTROPHILS % (AUTO) 63.9 % (40-74); Platelet Count 476 bil/L (150-400)
[2016-07-04 07:08] LABS: Magnesium 2.3 mg/dL (1.6-2.6); Phosphorus 3.6 mg/dL (2.5-4.9)
[2016-07-04] MEDS: Sodium Chloride LOK Flush 10 mL Syringe IVFLUSH SCH ×4 (08:30→16:30)
--- NOTE | 2016-07-04 08:52 | PCM.PNMED ---
Subjective Date of Service July 04, 2016 Subjective Resting in bed, no complaints. Behavior good with no problems per nursing. Exam Vital Signs Vital Sign - Last Date Time Temp Pulse Resp B/P Pulse Ox O2 Delivery O2 Flow Rate FiO2 07/04/16 05:14 36.6 80 17 102/70 96 Room Air 07/02/16 05:01 2.00 Intake and Output 07/03/16 07/03/16 07/04/16 Cumulative From/Thru 15:00 23:00 07:00 06/29/16 23:13 - 07/04/16 05:14 Intake Total 937 ml 770 ml 24725 ml Output Total 1300 ml 1400 ml 9430 ml Balance -363 ml -630 ml 6140 ml Intake Oral 937 ml 770 ml 6903 ml IV Total 8667 ml Output Urine Total 1300 ml 1400 ml 9430 ml # Voids 9 Exam Eyes; jonathan, eom intact Mouth; hydrated without lesions CV; no murmur, regular Resp; Clear anteriorly GI; Soft non tender Lab and Diagnostics Result Diagram: 07/04/16 0630 07/04/16 0630 Microbiology SUKHDEEP CULT URINE Final 07/02/16-0906 Organism 1 ESCHERICHIA COLI U COLONY COUNT/QUANTITY >100,000 CFU/ml Cefazolin-predicts results for the oral agents, cefaclor,cefdinir, cefpodoximen, cefprozil, cefuroximne axetil, cephalexin and loracarbed when used for therapy of uncomplicated UTI's due to E. coli, K. pneumoniae, and Proteus mirabilis. Cefpodoxime, cefdinir and cefuroxime axetil may be tested individually because some isolates may be susceptible to these agents while testing resistant to cefazolin. (CLSI F015-H44 pg 53) 1. ESCHERICHIA COLI M.I.C Interp --------- ------ * AMOXICILLIN/CLAVULATE <=2 S * AMPICILLIN 8 S * CEFAZOLIN (CEPHALOSPORIN) UTI 4 S * CEFEPIME <=1 S * CEFTRIAXONE <=1 S * CEFUROXIME SODIUM 4 S * CIPROFLOXACIN <=0.25 S * ERTAPENEM <=0.5 S * GENTAMICIN <=1 S * IMIPENEM <=1 S * LEVOFLOXACIN <=0.12 S * NITROFURANTOIN <=16 S * TETRACYCLINE <=1 S * TOBRAMYCIN <=1 S * TRIMETHOPRIM/SULFAMETHOXAZOLE <=20 S X-Rays, CTs and MRIs CT KUB IMPRESSION: 1. Slightly prominent right kidney with stranding around it in the retroperitoneum. There is also slight increased density in the mesentery in the stranding appears to arise from the region of the kidney extends down in the retroperitoneum in the area of the cecum. No appendix is identified normal or abnormal. Hydronephrosis is not appreciated and no obstruction or ureteral stone is seen. There is a 2 mm central nonobstructing right renal calculus. These findings would suggest right-sided pyelonephritis. Clinical correlation needed. 2. Bilateral prominent appearing ovaries with multiple small probably follicular type cysts. Dictated by: Petros Buchanan M.D. on 06/30/2016 at 7:50 this report corresponds to the findings of the preliminary NSR report. X-RAY CHEST ONE VIEW IMPRESSION: No acute cardiopulmonary disease. Dictated by: Ryan Pruitt RRA Interpreted: Petros Buchanan MD on 06/30/2016 at 11:33 Assessment & Plan Miri Beasley is a 26 year old woman with past medical history significant for kidney stones since age 9 requiring percutaneous drainage, recurrent pyelonephritis, as well as polysubstance abuse including heroin IVDU who presented to the [facility] ED with hematuria for 6 days. Now under treatment for sepsis, pyelonephritis, myxedema. Hospital day #4 1. Severe pyelonephritis, poa, active -likely secondary to nephrolithiasis, complicated by acute kidney injury. s/p one dose of ceftriaxone in the ED without any reaction -Antibiotic day4, switched Zosyn to IM ceftriaxone to narrow coverage, cultures indicating Escherichia coli, pansensitive. However due to the loss of IV access for this patient we are forced to go with it IM route. We will proceed with 500 mg of IM ceftriaxone to be given into each buttock cheek once daily. -At this point central venous access will likely cause more harm than good for 1 -2 days more of IV antibiotics thus we will forego it. 2. Acute kidney injury, present on admission, improving -May be multifactorial from prerenal azotemia, sepsis, pyelonephritis. -As she has lost her IV access we will encourage by mouth intake of fluids. -creatinine down to 1.04 3. Myxedema, present on admission, improving -Dr. Samuel endocrinology was consulted. We thank him for his time and expertise. -Continue loading dose of PO levothyroxine 300 mg 3 days until tomorrow, please decrease dosage tomorrow, ~1.7 mcg/kg/day, appreciate input -Reiterated to the patient the importance of compliance and follow-up with her severe hypothyroidism. 4. Sepsis poa, resolved -secondary to pyelonephritis evidenced by HR of 106, T 36.0, present on admission -lactate initially trended up then normalized. -Blood cultures negative 2 days, urine cultures as above 5. Acute Hepatitis C infection, present on admission, active -This likely explains the patient's upper trend in LFTs -Hepatitis C genotype ordered as well as viral load -She will need to establish with a primary care provider as well as with a GI doctor upon discharge. -repeat cmp 6. Polysubstance abuse -Social work consult, she is scheduled to see a dental specialist -Patient would like to discuss methadone for discharge. 7. Livido reticularis, chronic -Possibly due to thyroid disease or IV drug abuse. 8. Protein malnutrition -Likely due to poor intake, ordered nutritional consultation -Total protein decreased once patient is fluid resuscitated 9. Elevated troponin of uncertain significance, present on admission, resolved -In the setting of IVDU may represent endocarditis however EKG and CXR were unremarkable 10. Nicotine use -Patch offered DISPO: Anticipate patient will be in house for 2-3 more days. GI Prophylaxis: Not indicated VTE Prophylaxis: Sub-Q Heparin (Unfractionated) Resuscitation Status: CPR: Attempt Resuscitation Jim Graham MD July 04, 2016 08:52
[2016-07-04] MEDS: cefTRIAXone Inj 1,000 MG, Lidocaine PF 1% Inj 2.1 ML in Syringe 0 EACH IM SCH (12:45)
[2016-07-04] MEDS: Ondansetron 8 mg ODT Tablet PO PRN (12:53)
[2016-07-05] VITALS (11 sets, daily range): BP systolic 93–122; BP diastolic 60–93; PULSE 68–83; RESP 6–18; O2SAT 93–100
[2016-07-05] MEDS: Sodium Chloride LOK Flush 10 mL Syringe IVFLUSH SCH ×4 (00:10→08:30)
[2016-07-05] MEDS: Heparin 5,000 Unit/mL Inj SUBQ SCH ×3 (00:43→19:17)
[2016-07-05] MEDS ORDERED: cefTRIAXone Inj 1,000 MG, Lidocaine PF 1% Inj 2.1 ML in Syringe 0 EACH IM SCH ×2 (08:30→10:00)
[2016-07-05] MEDS ORDERED: Propofol 10,000 mCg/mL 20 mL Inj ONE (09:00)
[2016-07-05] MEDS ORDERED: Dexamethasone 4 mg/mL Inj ONE (09:00)
[2016-07-05] MEDS ORDERED: MetoCLOpramide 5 mg/mL 2 mL Inj ONE (09:00)
[2016-07-05] MEDS ORDERED: Phenylephrine/NS 100 mCg/mL 10 mL Syringe IVPUSH ONE (09:00)
[2016-07-05] MEDS ORDERED: Ondansetron 2 mg/mL 2 mL Inj ONE (09:00)
--- NOTE | 2016-07-05 09:12 | PCM.PNMED ---
Subjective Date of Service July 05, 2016 Subjective Patient tells nurse she has a abscess on the L upper arm and R buttock, admits this is from needle sticks. Been there about 3 weeks. Otherwise doing well. Exam Vital Signs Vital Sign - Last Date Time Temp Pulse Resp B/P Pulse Ox O2 Delivery O2 Flow Rate FiO2 07/05/16 05:50 36.6 83 16 93/60 95 Room Air 07/02/16 05:01 2.00 Intake and Output 07/04/16 07/04/16 07/05/16 Cumulative From/Thru 15:00 23:00 07:00 06/29/16 23:13 - 07/05/16 05:40 Intake Total 1237 ml 62763 ml Output Total 1100 ml 24094 ml Balance 137 ml 6277 ml Intake Oral 1237 ml 8140 ml IV Total 8667 ml Output Urine Total 1100 ml 55372 ml # Voids 9 Exam Eyes; jonathan, eom intact HENT; adequate hydration, pale CV; reg, no murmur Resp; Clear GI; soft and non tender Neuro; CN 2-12 intact, no gross focal neuro deficits Skin; Right upper arm laterally the is a big swelling several inches across, central area 4-5 cm across with suspected purulent material under. Healin soft abcess that appears to have drained L buttock Lab and Diagnostics Result Diagram: 07/04/16 0630 07/05/16 0715 Microbiology SUKHDEEP CULT URINE Final 07/02/16-0906 Organism 1 ESCHERICHIA COLI U COLONY COUNT/QUANTITY >100,000 CFU/ml Cefazolin-predicts results for the oral agents, cefaclor,cefdinir, cefpodoximen, cefprozil, cefuroximne axetil, cephalexin and loracarbed when used for therapy of uncomplicated UTI's due to E. coli, K. pneumoniae, and Proteus mirabilis. Cefpodoxime, cefdinir and cefuroxime axetil may be tested individually because some isolates may be susceptible to these agents while testing resistant to cefazolin. (CLSI [id number] pg 53) 1. ESCHERICHIA COLI M.I.C Interp --------- ------ * AMOXICILLIN/CLAVULATE <=2 S * AMPICILLIN 8 S * CEFAZOLIN (CEPHALOSPORIN) UTI 4 S * CEFEPIME <=1 S * CEFTRIAXONE <=1 S * CEFUROXIME SODIUM 4 S * CIPROFLOXACIN <=0.25 S * ERTAPENEM <=0.5 S * GENTAMICIN <=1 S * IMIPENEM <=1 S * LEVOFLOXACIN <=0.12 S * NITROFURANTOIN <=16 S * TETRACYCLINE <=1 S * TOBRAMYCIN <=1 S * TRIMETHOPRIM/SULFAMETHOXAZOLE <=20 S X-Rays, CTs and MRIs CT KUB IMPRESSION: 1. Slightly prominent right kidney with stranding around it in the retroperitoneum. There is also slight increased density in the mesentery in the stranding appears to arise from the region of the kidney extends down in the retroperitoneum in the area of the cecum. No appendix is identified normal or abnormal. Hydronephrosis is not appreciated and no obstruction or ureteral stone is seen. There is a 2 mm central nonobstructing right renal calculus. These findings would suggest right-sided pyelonephritis. Clinical correlation needed. 2. Bilateral prominent appearing ovaries with multiple small probably follicular type cysts. Dictated by: Petros Buchanan M.D. on 06/30/2016 at 7:50 this report corresponds to the findings of the preliminary NSR report. X-RAY CHEST ONE VIEW IMPRESSION: No acute cardiopulmonary disease. Dictated by: Ryan Pruitt RR Interpreted: Petros Buchanan MD on 06/30/2016 at 11:33 Assessment & Plan Miri Beasley is a 26 year old woman with past medical history significant for kidney stones since age 9 requiring percutaneous drainage, recurrent pyelonephritis, as well as polysubstance abuse including heroin IVDU who presented to the [facility] ED with hematuria for 6 days. Now under treatment for sepsis, pyelonephritis, myxedema. 1. Severe pyelonephritis, poa, active -likely secondary to nephrolithiasis, complicated by acute kidney injury. s/p one dose of ceftriaxone in the ED without any reaction -Antibiotic day4, switched Zosyn to IM ceftriaxone to narrow coverage, cultures indicating Escherichia coli, pansensitive. However due to the loss of IV access for this patient we are forced to go with it IM route. We will proceed with 500 mg of IM ceftriaxone to be given into each buttock cheek once daily. -At this point central venous access will likely cause more harm than good for 1 -2 days more of IV antibiotics thus we will forego it. 2. Probable abscess Right Upper Arm, poa, active -nasal MRSA, blood cultures, surgical consultation for potential I&D 2. Acute kidney injury, present on admission, improving -May be multifactorial from prerenal azotemia, sepsis, pyelonephritis. -As she has lost her IV access we will encourage by mouth intake of fluids. -creatinine down to 1.04 3. Myxedema, present on admission, improving -Dr. Samuel endocrinology was consulted. We thank him for his time and expertise. -Continue loading dose of PO levothyroxine 300 mg 3 days until tomorrow, please decrease dosage tomorrow, ~1.7 mcg/kg/day, appreciate input -Reiterated to the patient the importance of compliance and follow-up with her severe hypothyroidism. 4. Sepsis poa, resolved -secondary to pyelonephritis evidenced by HR of 106, T 36.0, present on admission -lactate initially trended up then normalized. -Blood cultures negative 2 days, urine cultures as above 5. Acute Hepatitis C infection, present on admission, active -This likely explains the patient's upper trend in LFTs -Hepatitis C genotype ordered as well as viral load -She will need to establish with a primary care provider as well as with a GI doctor upon discharge. -repeat cmp 6. Polysubstance abuse -Social work consult, she is scheduled to see a product distribution specialist -Patient would like to discuss methadone for discharge. 7. Livido reticularis, chronic -Possibly due to thyroid disease or IV drug abuse. 8. Protein malnutrition -Likely due to poor intake, ordered nutritional consultation -Total protein decreased once patient is fluid resuscitated 9. Elevated troponin of uncertain significance, present on admission, resolved -In the setting of IVDU may represent endocarditis however EKG and CXR were unremarkable 10. Nicotine use -Patch offered DISPO: Anticipate patient will be in house for 2-3 more days. GI Prophylaxis: Not indicated VTE Prophylaxis: Sub-Q Heparin (Unfractionated) Resuscitation Status: CPR: Attempt Resuscitation Jim Graham MD July 05, 2016 09:12
[2016-07-05] MEDS: Ondansetron 8 mg ODT Tablet PO PRN (09:13)
[2016-07-05] MEDS: Polyethylene Glycol (PEG) 17 Gm Powder PO PRN (10:44)
--- NOTE | 2016-07-05 14:33 | CONS ---
[address] [address] CONSULTATION REPORT PATIENT: FITO SIMPSON : 1990 MR#: [id number] ADMIT: 06/30/2016 JOB ID: [id number] DATE OF SERVICE: 07/05/2016 CHIEF COMPLAINT/IDENTIFICATION: Dr. Graham from the hospital service has asked me to see this 26-year-old female with a left arm abscess and a right buttock abscess. HISTORY OF PRESENT ILLNESS: The patient was admitted five days ago with signs and symptoms of sepsis secondary to pyelonephritis, severe myxedema, and polysubstance abuse. The patient tells me that she has had these abscesses for a while and that she "took care of" the one on her buttock. She has had previous incision and drainage of multiple abscesses related to polysubstance abuse in the past. Currently, she is on ceftriaxone for her infection. PAST MEDICAL HISTORY: Per admission history and physical. PHYSICAL EXAMINATION: She is in no acute distress. She just drank some orange juice prior to my coming into the room. Vital signs recorded in the chart. She has an area of fluctuance on her left lateral deltoid region with surrounding erythema and induration. The area around bilateral buttocks is consistent with previously drained abscesses, and although there is some induration on her left buttock, there is no fluctuance and nothing to be drained. IMPRESSION AND PLAN: Left arm abscess. She is open to have this drained in the operating room and I will discuss the timing of this with our anesthesiologist. We will look into it today and I have made her n.p.o.
--- NOTE | 2016-07-05 16:27 | PCM.HPANE ---
Patient Data Date of Service: July 05, 2016 Surgeon Admitting Provider:Mauro Ragland MD Attending Provider:Mauro Ragland MD Primary Care Physician:[facility] Other Provider: Reason for Visit Pyelonephritis,Iv Heroin Use,Meth Use,Anemia Ht/WT & BMI Height (Feet): 4 Height (Inches): 11.00 Weight (Kilograms): 59.500 Body Mass Index 27.64 Allergies Coded Allergies: cefaclor (Verified Allergy, Intermediate, muscle rigidity, 06/30/16) Past Anesthesia History Anesthesia History: Denies:: Anesthesia Reactions Diabetes History Hx Diabetes?: No MRSA MRSA: No Medications Hypertension Medication: No Home Meds Incl Beta Amadou: No Reported Medications Levothyroxine (Synthroid)125 Mcg [id number] Mcg PO DAILY Ref 0 06/30/16 History History of ENT Problems?: No HEENT History: Denies:: Abnormal Airway Cataracts Difficult Intubation Dysphagia Glaucoma Hearing Problem Sinus Problem TMJ Denture Type: None Teeth Condition: Broken Teeth Tooth Decay Missing Teeth Hx of Heart Problems?: Yes Cardiovascular History: Denies:: Cardiac Surgery Chest Pain Congestive Heart Failure Edema Heart Murmur Hypertension Irregular Heartbeat Pacemaker Thrombophlebitis Hx of Respiratory Problem?: No Respiratory History: Denies:: Tuberculosis Other Resp Pertinent History: marijuana smoking occasional Hx Neurologic Problems?: Yes Neurological History: Denies:: Alzheimer's Disease CVA Dementia Dizziness Headaches Parkinson's Disease Seizures (Pt. thinks she has seizures "when I'm coming down" from heroin) Hx of GI Problems?: Yes Hx of Problems?: Yes Genitourinary History: Positive for:: Kidney Stones (recurrent, lithotripsy) Urinary Tract Infection (recurrent) Denies:: HX of Hemodialysis HX of Peritoneal Dialysis: No Other Pertinent History: recent urinary incontinence Female Hx: Denies:: Currently Endometriosis Pelvic Inflammatory Problems with Breasts? Skin History: Positive for:: History Skin Disorders? (multiple abscesses from "muscle-ing" heroin) Hx Musculoskeletal Problems?: No Hx of Psycho/Social Problems?: Yes Psycho Social History: Positive for:: Anxiety (with heroin use ) Hx Depression (with heroin use) Denies:: Bipolar Disorder Suicide Attempt Hx Surgeries?: Yes (appy, tonsils, lithotripsy) Hx Any Other Health Problems?: Yes Other History: Positive for:: Hospitalization (pyelo) Thyroid Disease Denies:: Cancer History Blood Transfusions: Positive for:: Accept Blood Products? Denies:: Blood Transfusions Hx Diabetes: No Hx Alcohol Use: NoHx Substance Use: Yes (IV heroin, meth, marijuana) Smoking Status: Current Every Day Smoker Heavy Tobacco Smoker Have You Smoked inLast 12 mo: NoApprox How Many Cigarettes/day: 30 Stop/Bang Treated for Sleep Apnea?: No Do You Have a CPAP Machine?: No S-Snoring: Do You Snore Loudly: No T-Tired: feel tired, fatigued: No O-Obsered: Observed not breath: No P-Blood Pressure: treated: No B- Body Mass Index > 35 kg/m2: No A- Age over 50: No N- Neck Large Circumference: Yes G- Gender Male: No ALPHONSE Total Score: 1 ALPHONSE Risk Assessment: Low Risk, <3 Yes Risk Assessment Category Category 1A: Patient has history of documented sleep apnea, and HAS NOT received any narcotic, sedative or anesthesia administration during this stay. Category 1B: Patient has history of documented sleep apnea, and HAS received any narcotic , sedative or anesthesia administration during this stay Category 2: Patient has SUSPECTED Obstructive Sleep Apnea, and HAS received any narcotic , sedative or anesthesia administration during this stay. Category 3: Patient has SUSPECTED Obstructive Sleep Apnea and HAS NOT received narcotic, sedative or anesthesia administration during this stay. Category 4: Outpatient in Procedural Areas with known sleep apnea or who screen positive for High Risk via the STOP/BANG questionnaire. Exam Exam Vital Signs Vital Signs Date Time Temp Pulse Resp B/P Pulse Ox O2 Delivery O2 Flow Rate FiO2 07/05/16 14:48 36.4 82 18 110/82 93 Room Air 07/05/16 10:29 36.8 77 18 101/73 98 Room Air General Appearance: Oriented X3, Cooperative, No Acute Distress, Other (sedated ) HEENT/AIRWAY: MP 3, Neck Movement (FROM), Mouth Opening (3), Other (TMD3) Lungs: Diminished Heart: Exam Unremarkable, Regular Rate/Rhythm, Normal S1, Normal S2, No Murmurs /Rubs/Gallops Additional Information affect slightly inappropriate - will grin broadly for no reason at all and otherwise appears somewhat sedated, answers questions appropriately Meds/Labs/Diagnostics Admission Meds Current Medications Levothyroxine Sodium 125 mcg 125 mcg ONCE ONCE PO Last administered on 09:13; Start 07/05/16 at 08:30; Stop 07/05/16 at 08:31; Status DC Ceftriaxone Sodium/Lidocaine HCl/Syringe (Rocephin Inj/ Xylocaine PF 1% Inj/ Syringe) 2.1 ml @ 126 mls/hr DAILY@10 IM Last administered on 07/05/16 11:52; Start 07/05/16 at 10:00; Stop 07/05/16 at 14:29; Status DC Labs Test 06/30/16 01:15 06/30/16 02:20 06/30/16 13:03 07/01/16 03:20 Prothrombin Time 11.1sec (8.1-12.5) Prothromb Time International Ratio 1.04ratio Lipase 13U/L (13-60) HCG Beta Subunit < 0.500mIU/mL Hold Urine Received (Received) Urine Color Dark yellow (YELLOW) Urine Appearance Cloudy (CLEAR,HAZY) Urine pH 5.5 (5.0-8.0) Urine Specific [place] 1.020 (1.003-1.035) Urine Protein 100mg/dL (NEG,TRACE) Urine Glucose (UA) Negativemg/dL (NEGATIVE) Urine Ketones Negativemg/dL (NEGATIVE) Urine Occult Blood Large (NEGATIVE) Urine Nitrite Positive (NEGATIVE) Urine Bilirubin Negative (NEGATIVE) Urine Urobilinogen Normalmg/dL (NORMAL) Urine Leukocyte Esterase Trace (NEGATIVE) Urine RBC Packed/hpf (0-2) Urine WBC 11-50/hpf (0-5) Urine Epithelial Cells Occasional/hpf (NONE-MOD) Urine Crystals None seen (NONE SEEN) Urine Bacteria Few/hpf (NONE-FEW) Urine Hyaline Casts None/lpf (NONE) Urine Granular Casts None seen (NONE SEEN) Urine Waxy Casts None seen (NONE SEEN) Urine Red Blood Cell Casts None seen (NONE SEEN) Urine White Blood Cell Casts None seen (NONE SEEN) Urine Mucus None seen (None Seen) Urine Trichomonas None seen (NONE SEEN) Urine Yeast None (NONE SEEN) Urinalysis Comment None Urine Culture Reflexed Indicated Urine Opiates Screen Positive Urine Methadone Screen Negative Urine Barbiturates Screen Negative Urine Amphetamines Screen Positive Urine Benzodiazepines Screen Negative Urine Cocaine Metabolite Screen Negative Urine Cannabinoids Screen Positive Lactic Acid Level 0.9mmol/L (0.4-2.0) Direct Bilirubin 0.2mg/dL (0.0-0.3) Thyroid Stimulating Hormone (TSH) 427.400uIU/mL (0.450-4.500) Free Thyroxine < 0.10ng/dL (0.82-1.77) Hepatitis A IgM Antibody Negative (Negative) Hepatitis B Surface Antigen Negative (Negative) Hepatitis B Core IgM Antibody Negative (Negative) Hepatitis C Antibody >11.0s/co ratio Hepatitis C Antibody Comment Comment (.) HIV (1&2) Ag and Ab, 4th Generation Non reactive (Non Reactive) Test 07/01/16 12:00 07/02/16 16:10 07/04/16 06:30 07/05/16 07:15 Troponin T < 0.010ug/L (0.0-0.011) White Blood Count 9.4th/mm3 (3.8-10.1) Red Blood Count 2.79mil/mm3 (3.90-5.20) Hemoglobin 8.6g/dL (12.0-15.6) Hematocrit 27.0% (35.0-46.0) Mean Corpuscular Volume 96.8fL (81-100) Mean Corpuscular Hemoglobin 30.8pg (27.0-35.0) Mean Corpuscular Hemoglobin Concent 31.9% (32.0-37.0) Red Cell Distribution Width 13.6% (12.3-15.4) Platelet Count 476bil/L (150-400) Neutrophils (%) (Auto) 63.9% (40-74) Lymphocytes (%) (Auto) 26.0% (14-46) Monocytes (%) (Auto) 6.6% (4-12) Eosinophils (%) (Auto) 1.4% (0-5) Basophils (%) (Auto) 0.6% (0-3) Phosphorus Level 3.6mg/dL (2.5-4.9) Magnesium Level 2.3mg/dL (1.6-2.6) Sodium Level 138mEq/L (134-144) Potassium Level 5.0mEq/L (3.5-5.2) Chloride Level 95mEq/L (97-108) Carbon Dioxide Level 30mmol/L (18-29) Blood Urea Nitrogen 7mg/dL (6-20) Creatinine 1.26mg/dL (0.57-1.00) Estimat Glomerular Filtration Rate 72mL/min (>59) Glucose Level 71mg/dL (60-99) Calcium Level 9.5mg/dL (8.5-10.1) Total Bilirubin 0.3mg/dL (0.0-1.2) Aspartate Amino Transf (AST/SGOT) 208U/L (0-50) Alanine Aminotransferase (ALT/SGPT) 143U/L (0-32) Alkaline Phosphatase 566U/L (25-150) Total Protein 8.2g/dL (6.4-8.4) Albumin 3.8g/dL (3.4-5.0) Procalcitonin 0.13ng/mL (0.00-0.08) Plan Impression Patient chart reviewed, patient interviewed and anesthestic plan with risks, benefits, and alternatives discussed, and informed consent obtained. NPO per Anesth. Guidelines: Yes ASA Physical Status: ASA3 Severe Disease Anesthetic Plan: GA Bene/Risks/Altern/Consents: Yes HP Complete Prior to Induction: Yes Hardik Pino MD July 05, 2016 16:27
[2016-07-05] MEDS ORDERED: Lactated Ringer's 1,000 ML IV ONE (16:35)
[2016-07-05] MEDS ORDERED: Bupivacaine-MPF 0.5% W/EPI 30 mL Inj INFILTRATE ONE (17:08)
[2016-07-05] MEDS ORDERED: Lactated Ringer's 500 ML IV PRN (17:29)
[2016-07-05] MEDS ORDERED: Lactated Ringer's 1,000 ML IV SCH (17:29)
[2016-07-05] MEDS ORDERED: EPHEDrine Sulfate 50 mg/mL Inj IVPUSH PRN (17:30)
[2016-07-05] MEDS ORDERED: Flumazenil 0.1 mg/mL 5 mL Inj IV ONE (17:30)
[2016-07-05] MEDS ORDERED: Dexamethasone 4 mg/mL Inj IVPUSH PRN (17:30)
[2016-07-05] MEDS ORDERED: Phenylephrine 10,000 mCg/mL Inj IVPUSH PRN (17:30)
[2016-07-05] MEDS ORDERED: fentaNYL-PF 50 mCg/mL 2 mL Inj IVPUSH PRN (17:30)
[2016-07-05] MEDS ORDERED: MetoCLOpramide 5 mg/mL 2 mL Inj IVPUSH PRN (17:30)
[2016-07-05] MEDS ORDERED: Ondansetron 2 mg/mL 2 mL Inj IVPUSH PRN (17:30)
[2016-07-05] MEDS ORDERED: Vancomycin Dose per Pharmacist XX SCH (17:40)
--- NOTE | 2016-07-05 18:10 | OP ---
[address] [address] OPERATIVE REPORT PATIENT: FITO SIMPSON : 1990 MR#: [id number] ADMIT: 06/30/2016 JOB ID: [id number] DATE OF SURGERY: 07/05/2016 PREOPERATIVE DIAGNOSIS(ES): Left arm abscess. POSTOPERATIVE DIAGNOSIS(ES): Left arm abscess. PROCEDURE: Incision and drainage of left arm abscess. SURGEON: Christiano Dykes MD. INDICATIONS: A 26-year-old female with a left arm abscess. FINDINGS: Purulence within the abscess, abscess drained. PROCEDURE: Scope protocol was followed. Surgical time-out was performed. The patient was brought to the operating room. LMA anesthesia was initiated. Left arm was prepped and draped in sterile fashion. She was on therapeutic antibiotics. We did a surgical time-out. After prepping and draping, the left arm, I inserted an 18-gauge needle with a syringe in the area of maximal fluctuance and obtained approximately 7 cc of thick, chocolate-covered pus that was sent to the lab for Gram stain and culture. We then made a longitudinal incision over her arm, emptied out all the pus, irrigated out the cavity, and obtained hemostasis with pressure and Nu Gauze packing. Dressing was applied, and the patient tolerated the procedure well.
[2016-07-05] MEDS ORDERED: Vancomycin Inj 1,000 MG in IV Premix 1 EACH IV ONE (19:00)
--- NOTE | 2016-07-05 19:53 | PCM.CONPHA ---
Subjective Initial Endocrinology Consultation: Asked by to consult regarding this 26-year-old woman with chronic hypothyroidism who presents with myxedema in the setting of acute pyelonephritis. Patient currently complains of fatigue, confusion and flank/abdominal discomfort. Reason for Pharmacy Consult: Vancomycin Dosing Objective Vital Signs Date Time Temp Pulse Resp B/P Pulse Ox O2 Delivery O2 Flow Rate FiO2 07/05/16 18:37 36.6 69 16 104/74 94 Nasal Cannula 2.00 07/05/16 18:16 36.2 07/05/16 18:09 71 12 122/93 100 Nasal Cannula 2 07/05/16 17:57 68 10 112/86 100 Nasal Cannula 2 07/05/16 17:38 76 9 113/81 97 Room Air 07/05/16 17:25 79 6 109/81 99 Simple Mask 8 07/05/16 17:21 36.3 79 8 119/85 98 Simple Mask 8 07/05/16 14:48 36.4 82 18 110/82 93 Room Air 07/05/16 10:29 36.8 77 18 101/73 98 Room Air 07/05/16 05:50 36.6 83 16 93/60 95 Room Air 07/05/16 00:53 78 16 116/77 95 Room Air 07/04/16 21:43 36.6 77 16 121/84 95 Room Air 07/04/16 20:00 65 Intake and Output 07/03/16 07/04/16 07/05/16 00:00 00:00 00:00 Intake Total 4057 ml 1037 ml 2007 ml Output Total 3030 ml 1900 ml 2500 ml Balance 1027 ml -863 ml -493 ml Weight (Kilograms): 59.500 Height (Feet): 4 Height (Inches): 11.00 Test 06/30/16 01:15 06/30/16 02:20 06/30/16 13:03 07/01/16 03:20 Prothrombin Time 11.1sec (8.1-12.5) Prothromb Time International Ratio 1.04ratio Lipase 13U/L (13-60) HCG Beta Subunit < 0.500mIU/mL Hold Urine Received (Received) Urine Color Dark yellow (YELLOW) Urine Appearance Cloudy (CLEAR,HAZY) Urine pH 5.5 (5.0-8.0) Urine Specific [place] 1.020 (1.003-1.035) Urine Protein 100mg/dL (NEG,TRACE) Urine Glucose (UA) Negativemg/dL (NEGATIVE) Urine Ketones Negativemg/dL (NEGATIVE) Urine Occult Blood Large (NEGATIVE) Urine Nitrite Positive (NEGATIVE) Urine Bilirubin Negative (NEGATIVE) Urine Urobilinogen Normalmg/dL (NORMAL) Urine Leukocyte Esterase Trace (NEGATIVE) Urine RBC Packed/hpf (0-2) Urine WBC 11-50/hpf (0-5) Urine Epithelial Cells Occasional/hpf (NONE-MOD) Urine Crystals None seen (NONE SEEN) Urine Bacteria Few/hpf (NONE-FEW) Urine Hyaline Casts None/lpf (NONE) Urine Granular Casts None seen (NONE SEEN) Urine Waxy Casts None seen (NONE SEEN) Urine Red Blood Cell Casts None seen (NONE SEEN) Urine White Blood Cell Casts None seen (NONE SEEN) Urine Mucus None seen (None Seen) Urine Trichomonas None seen (NONE SEEN) Urine Yeast None (NONE SEEN) Urinalysis Comment None Urine Culture Reflexed Indicated Urine Opiates Screen Positive Urine Methadone Screen Negative Urine Barbiturates Screen Negative Urine Amphetamines Screen Positive Urine Benzodiazepines Screen Negative Urine Cocaine Metabolite Screen Negative Urine Cannabinoids Screen Positive Lactic Acid Level 0.9mmol/L (0.4-2.0) Direct Bilirubin 0.2mg/dL (0.0-0.3) Thyroid Stimulating Hormone (TSH) 427.400uIU/mL (0.450-4.500) Free Thyroxine < 0.10ng/dL (0.82-1.77) Hepatitis A IgM Antibody Negative (Negative) Hepatitis B Surface Antigen Negative (Negative) Hepatitis B Core IgM Antibody Negative (Negative) Hepatitis C Antibody >11.0s/co ratio Hepatitis C Antibody Comment Comment (.) HIV (1&2) Ag and Ab, 4th Generation Non reactive (Non Reactive) Test 07/01/16 12:00 07/02/16 16:10 07/04/16 06:30 07/05/16 07:15 Troponin T < 0.010ug/L (0.0-0.011) White Blood Count 9.4th/mm3 (3.8-10.1) Red Blood Count 2.79mil/mm3 (3.90-5.20) Hemoglobin 8.6g/dL (12.0-15.6) Hematocrit 27.0% (35.0-46.0) Mean Corpuscular Volume 96.8fL (81-100) Mean Corpuscular Hemoglobin 30.8pg (27.0-35.0) Mean Corpuscular Hemoglobin Concent 31.9% (32.0-37.0) Red Cell Distribution Width 13.6% (12.3-15.4) Platelet Count 476bil/L (150-400) Neutrophils (%) (Auto) 63.9% (40-74) Lymphocytes (%) (Auto) 26.0% (14-46) Monocytes (%) (Auto) 6.6% (4-12) Eosinophils (%) (Auto) 1.4% (0-5) Basophils (%) (Auto) 0.6% (0-3) Phosphorus Level 3.6mg/dL (2.5-4.9) Magnesium Level 2.3mg/dL (1.6-2.6) Sodium Level 138mEq/L (134-144) Potassium Level 5.0mEq/L (3.5-5.2) Chloride Level 95mEq/L (97-108) Carbon Dioxide Level 30mmol/L (18-29) Blood Urea Nitrogen 7mg/dL (6-20) Creatinine 1.26mg/dL (0.57-1.00) Estimat Glomerular Filtration Rate 72mL/min (>59) Glucose Level 71mg/dL (60-99) Calcium Level 9.5mg/dL (8.5-10.1) Total Bilirubin 0.3mg/dL (0.0-1.2) Aspartate Amino Transf (AST/SGOT) 208U/L (0-50) Alanine Aminotransferase (ALT/SGPT) 143U/L (0-32) Alkaline Phosphatase 566U/L (25-150) Total Protein 8.2g/dL (6.4-8.4) Albumin 3.8g/dL (3.4-5.0) Procalcitonin 0.13ng/mL (0.00-0.08) Assessment/Plan Assessment/Plan VANCOMYCIN DOSING PER PHARMACY Indication: Abscess Cultures: abscess cultures pending Wt 59.5 kg Ht 59 in Labs: Scr 1.26 WBC 9.4 Procal 0.13 P: Pt was given loading dose of vancomycin 1000 mg IV on 07/05 @1900 Will initiate vancomycin 750 mg IV q12h beginning 07/06 @0700 Trough will be drawn on 07/07 @ 0630 before the 4th dose Faustina Nair PharmD July 05, 2016 19:53
[2016-07-05] MEDS: Piperacillin-Tazo 3.375 Gm Inj 3.375 GM in Dextrose 5% Minibag Plus 50 ML IV SCH (21:03)
[2016-07-06] MEDS: Heparin 5,000 Unit/mL Inj SUBQ SCH ×3 (00:40→17:41)
[2016-07-06] MEDS: Piperacillin-Tazo 3.375 Gm Inj 3.375 GM in Dextrose 5% Minibag Plus 50 ML IV SCH ×3 (02:31→17:41)
[2016-07-06 05:39] VITALS: BP 105/64; PULSE 82; RESP 14; O2SAT 95
[2016-07-06] MEDS ORDERED: Vancomycin Inj 750 MG in 0.9% Sodium Chloride 250 ML IV SCH (07:00)
--- NOTE | 2016-07-06 07:13 | PCM.PNMED ---
Subjective Date of Service July 06, 2016 Subjective Went to OR for I&D yesterday, 7-9 cc brown pus noted. Bit hypoxic, but sleeping. No new complaints by patient. Exam Vital Signs Vital Sign - Last Date Time Temp Pulse Resp B/P Pulse Ox O2 Delivery O2 Flow Rate FiO2 07/06/16 05:39 36.8 82 14 105/64 95 OxyMask 3.00 Intake and Output 07/05/16 07/05/16 07/06/16 Cumulative From/Thru 15:00 23:00 07:00 06/29/16 23:13 - 07/06/16 06:53 Intake Total 475 ml 2012 ml 1013 ml 52775 ml Output Total 2150 ml 2050 ml 2550 ml 42284 ml Balance -1675 ml -38 ml -1537 ml 3027 ml Intake Oral 475 ml 1237 ml 400 ml 30439 ml IV Total 775 ml 613 ml 87720 ml Output Urine Total 2150 ml 2050 ml 2550 ml 68441 ml # Voids 9 # Bowel Movements 0 0 0 Exam Eyes; jonathan, eom intact HENT; adequate hydration CV; reg, no murmur Lungs; clear anterioraly GI; soft non tender Skin: pale, bandages to right upper arm, clean Neuro; cn 2-12 intact Lab and Diagnostics Result Diagram: 07/04/16 0630 07/06/16 0610 Microbiology SUKHDEEP CULT URINE Final 07/02/16-0906 Organism 1 ESCHERICHIA COLI U COLONY COUNT/QUANTITY >100,000 CFU/ml Cefazolin-predicts results for the oral agents, cefaclor,cefdinir, cefpodoximen, cefprozil, cefuroximne axetil, cephalexin and loracarbed when used for therapy of uncomplicated UTI's due to E. coli, K. pneumoniae, and Proteus mirabilis. Cefpodoxime, cefdinir and cefuroxime axetil may be tested individually because some isolates may be susceptible to these agents while testing resistant to cefazolin. (CLSI O443-Q71 pg 53) 1. ESCHERICHIA COLI M.I.C Interp --------- ------ * AMOXICILLIN/CLAVULATE <=2 S * AMPICILLIN 8 S * CEFAZOLIN (CEPHALOSPORIN) UTI 4 S * CEFEPIME <=1 S * CEFTRIAXONE <=1 S * CEFUROXIME SODIUM 4 S * CIPROFLOXACIN <=0.25 S * ERTAPENEM <=0.5 S * GENTAMICIN <=1 S * IMIPENEM <=1 S * LEVOFLOXACIN <=0.12 S * NITROFURANTOIN <=16 S * TETRACYCLINE <=1 S * TOBRAMYCIN <=1 S * TRIMETHOPRIM/SULFAMETHOXAZOLE <=20 S X-Rays, CTs and MRIs CT KUB IMPRESSION: 1. Slightly prominent right kidney with stranding around it in the retroperitoneum. There is also slight increased density in the mesentery in the stranding appears to arise from the region of the kidney extends down in the retroperitoneum in the area of the cecum. No appendix is identified normal or abnormal. Hydronephrosis is not appreciated and no obstruction or ureteral stone is seen. There is a 2 mm central nonobstructing right renal calculus. These findings would suggest right-sided pyelonephritis. Clinical correlation needed. 2. Bilateral prominent appearing ovaries with multiple small probably follicular type cysts. Dictated by: Petros Buchanan M.D. on 06/30/2016 at 7:50 this report corresponds to the findings of the preliminary NSR report. X-RAY CHEST ONE VIEW IMPRESSION: No acute cardiopulmonary disease. Dictated by: Ryan Pruitt RRA Interpreted: Petros Buchanan MD on 06/30/2016 at 11:33 Assessment & Plan Miri Beasley is a 26 year old woman with past medical history significant for kidney stones since age 9 requiring percutaneous drainage, recurrent pyelonephritis, as well as polysubstance abuse including heroin IVDU who presented to the [facility] ED with hematuria for 6 days. Now under treatment for sepsis, pyelonephritis, myxedema. 1. Severe pyelonephritis, poa, active -likely secondary to nephrolithiasis, complicated by acute kidney injury. s/p one dose of ceftriaxone in the ED without any reaction -Antibiotic day4, switched Zosyn to IM ceftriaxone to narrow coverage, cultures indicating Escherichia coli, pansensitive. However due to the loss of IV access for this patient we are forced to go with it IM route. We will proceed with 500 mg of IM ceftriaxone to be given into each buttock cheek once daily. -At this point central venous access will likely cause more harm than good for 1 -2 days more of IV antibiotics thus we will forego it. 2. Probable abscess Right Upper Arm, poa, active -nasal MRSA negative -7-9 cc pus brown; gram pos and gram neg variable rods -continue Zosyn, discontinue vanco, await sensitivities (renal concerns and neg nasal mrsa) 2. Acute kidney injury, present on admission, improving -May be multifactorial from prerenal azotemia, sepsis, pyelonephritis. -As she has lost her IV access we will encourage by mouth intake of fluids. -creatinine down to 1.04, 1.42 today -urine eosinophils 3. Myxedema, present on admission, improving -Dr. Samuel endocrinology was consulted. We thank him for his time and expertise. -Continue loading dose of PO levothyroxine 300 mg 3 days until tomorrow, please decrease dosage tomorrow, ~1.7 mcg/kg/day, appreciate input -Reiterated to the patient the importance of compliance and follow-up with her severe hypothyroidism. 4. Sepsis poa, resolved -secondary to pyelonephritis evidenced by HR of 106, T 36.0, present on admission -lactate initially trended up then normalized. -Blood cultures negative 2 days, urine cultures as above 5. Acute Hepatitis C infection, present on admission, active -This likely explains the patient's upper trend in LFTs -Hepatitis C genotype ordered as well as viral load -She will need to establish with a primary care provider as well as with a GI doctor upon discharge. -repeat cmp 6. Polysubstance abuse -Social work consult, she is scheduled to see a recreation program specialist -Patient would like to discuss methadone for discharge. 7. Livido reticularis, chronic -Possibly due to thyroid disease or IV drug abuse. 8. Protein malnutrition -Likely due to poor intake, ordered nutritional consultation -Total protein decreased once patient is fluid resuscitated 9. Elevated troponin of uncertain significance, present on admission, resolved -In the setting of IVDU may represent endocarditis however EKG and CXR were unremarkable 10. Nicotine use -Patch offered DISPO: Anticipate patient will be in house for 2-3 more days. GI Prophylaxis: Not indicated VTE Prophylaxis: Sub-Q Heparin (Unfractionated) VTE Mechanical Devices: Venous Foot Pump Resuscitation Status: CPR: Attempt Resuscitation Jim Graham MD July 06, 2016 07:13
[2016-07-06] MEDS: Polyethylene Glycol (PEG) 17 Gm Powder PO PRN (07:45)
--- NOTE | 2016-07-06 08:08 | PCM.ANEP1 ---
Post Anesthesia Phase 1 PACU Phase 1 Assessment Date of Service: July 05, 2016 Vital Signs Vital Signs Date Time Temp Pulse Resp B/P Pulse Ox O2 Delivery O2 Flow Rate FiO2 07/06/16 05:39 36.8 82 14 105/64 95 OxyMask 3.00 Anesthetic Administered: GA Level of Alertness: Awake, talking SANDOVAL's with Equal Strength: Yes Pain: No Pain Scale Score: 0 Nausea or Vomiting: No Oxygen Delivery: Simple Mask Lungs: Diminished Complications: No Comments 07/06/16 05:39 36.8 82 14 105/64 95 OxyMask 3.00 Hardik Pino MD July 06, 2016 08:08
[2016-07-06] MEDS ORDERED: Linezolid Inj 600 MG in IV Premix 1 EACH IV SCH (08:30)
--- NOTE | 2016-07-06 12:25 | DRSVH ---
[facility] [address] [place] [address] Echocardiogram Report Name: FITO SIMPSON Date: 11/2016 Height: 59 in Hospital Exam Location: [facility] Weight: 126 lb Gender: Female BSA: 1.5 m2 : 1990 Age: 26 yrs BP: 105/64 mmHg Reason For Study: Endocarditis Ordering Physician: Performed By: Ana Villareal HOSPITALIST [facility] Interpretation Summary The left ventricle is normal in size. The left ventricular ejection fraction is normal. Filamentous mobile structure is noted on the ventricular aspect of the PMVL. It appears to be a redundant chordae, but could represent a vegetation , a IVAN is recommended. There is trace mitral regurgitation. Procedure: A two-dimensional transthoracic echocardiogram with color flow and Doppler was performed. The study quality was technically good. There is no prior echocardiogram noted for this patient. The patient was in normal sinus rhythm during the exam. Left Ventricle: The left ventricle is normal in size. There is normal left ventricular wall thickness. The left ventricular ejection fraction is normal. The ejection fraction is estimated to be 55-60%. Left ventricular wall motion is normal. Right Ventricle: The right ventricle is normal in size and function. Atria: The left atrial size is normal. Right atrial size is normal. The interatrial septum is intact with no evidence for an atrial septal defect. Mitral Valve: Filamentous mobile structure is noted on the ventricular aspect of the PMVL. It appears to be a redundant chordae, but could represent a vegetation , a IVAN is recommended. There is no vegetation seen on the mitral valve. There is trace mitral regurgitation. Aortic Valve: The aortic valve is trileaflet. The aortic valve opens well. There is trace aortic regurgitation. Tricuspid Valve: The tricuspid valve is normal in structure and function. There is trace tricuspid regurgitation. Pulmonary artery pressures cannot be estimated because of the lack of a measurable TR jet velocity. Pulmonic Valve: The pulmonic valve is normal in structure and function. There is no vegetation on the pulmonic valve. There is trace pulmonic regurgitation. Great Vessels: The aortic root is normal size. The dimensions of the ascending aorta are normal. The aortic arch is normal in size. The pulmonary artery is normal size. The IVC is of normal diameter and collapses greater than 50% with a sniff. This suggests a low right atrial pressure of 3 mm Hg. Pericardium/ Pleura There is a small pericardial effusion noted. There is no pleural effusion. MMode/2D Measurements & Calculations LVIDd: 4.8 cm RA long axis LVOT diam: 2.0 cm LVIDs: 2.8 cm LA A2 area: 12.4 cm Ao root diam FS: 40.6 % LA A4 area: 11.8 cm RA area EPSS: 0.57 cm LA length (vol) asc Aorta Diam IVSd: 0.70 cm : 9.3 cm LVPWd: 0.65 cm LA vol: 29.9 ml RA vol Ao Arch Diam (Prox LA vol index : 21.4 ml Trans): 2.0 cm RA : 14.1 mm/ IVC diam: 1.5 cm RVDd major : 6.0 cm LV giles. diameter/BSA LV sys. diameter/BSA RVD1 (basal) RVD2 (mid): 2.3 cm (cm/m^2): 3.2 (cm/m^2): 1.9 Doppler Measurements & Calculations Ao V2 max MV E max hua MV E/A: 1.7 PA V2 max : 106.0 cm/sec : 62.5 cm/sec Med Peak E' Hua : 71.1 cm/sec Ao max PG MV A max hua PA mean PG : 4.5 mmHg : 36.9 cm/sec E/E' med: 8.4 Ao mean PG MV P1/2t: 61.5 msec Lat Peak E' Hua PA Accel Time : 0.12 sec LVOT Max Hua E/E' lat: 6.1 : 80.2 cm/sec E/e' average: 7.2 CLEO(I,D): 2.3 cm MV A dur: 0.10 sec sev ratio MV dec time MV P1/2t max hua Ao V2 mean LV V1 max PG : 0.21 sec : 80.0 cm/sec Ao V2 VTI: 19.4 cm LV V1 VTI MVA(P1/2t): 3.6 cm2 : 13.5 cm CLEO(V,D): 2.4 cm2 PA V2 mean CLEO indexed to BSA : 51.9 cm/sec (cm^2/m^2): 1.5 Electronically signed by: Eliot Jenkins on Reading Physician:07/06/2016 12:24 PM
[2016-07-06 12:33] VITALS: BP 105/69; PULSE 78; RESP 16; O2SAT 100
--- NOTE | 2016-07-06 14:50 | PCM.PNSURG ---
Subjective Date of Service: July 06, 2016 Visit Information: Reason for Visit Pyelonephritis,Iv Heroin Use,Meth Use,Anemia Surgery/Surgery Date Post-Op Day #1 Date of Admission: June 30, 2016 at 07:21 Hospital Day # Subjective: Seen with the wound care nurse who has done a dressing change. The patient is comfortable. Postop General: No Complaints Pain Management: PO Postop Activity: Ambulating Independently Objective Vital Sign- Last 8 Hours Date Time Temp Pulse Resp B/P Pulse Ox O2 Delivery O2 Flow Rate FiO2 07/06/16 12:33 36.7 78 16 105/69 100 Room Air 07/06/16 08:08 Simple Mask Intake and Output- Last 8 Hour 07/06/16 Cumulative From/Thru 07:00 06/29/16 23:13 - 07/06/16 06:53 Intake Total 1013 ml 90716 ml Output Total 2550 ml 43532 ml Balance -1537 ml 3027 ml Intake Oral 400 ml 11943 ml IV Total 613 ml 23439 ml Output Urine Total 2550 ml 33262 ml # Voids 9 # Bowel Movements 0 0 General: Alert, Cooperative, No Acute Distress Lungs: Clear to Auscultation Heart: Regular Rate/Rhythm, No Murmurs/Rubs/Gallops SURGICAL WOUND : Wound Location/Description Left upper extremity surgical site is under dressing. Reported by the wound care nurse to have minimal induration, no undrained pockets, minimal cellulitis in the tissues, and no tracking. Neuro: Normal Speech Result Diagram: 07/04/16 0630 07/06/16 0610 Diagnostics: Echo demonstrating: "It appears to be a redundant chordae, but could represent a vegetation. IVAN recommended." Assessment & Plan Impression Primary diagnoses: 1. Left deltoid abscess. POD #1 with clean wound and no undrained pockets. 2. IV drug use with echocardiogram suggesting the possibility of vegetations Other chronic conditions: 1. Recurrent kidney stones 2. Recurrent pyelonephritis 3. Marijuana smoker 4. Daily cigarette smoker 5. Homelessness Problems: Plan Continue antibiotics and dressing changes. Pain Management: Oral methadone VTE Prophylaxis: Sub-Q Heparin (Unfractionated) Resuscitation Status: CPR: Attempt Resuscitation Juan José Forman PA-C July 06, 2016 14:50
[2016-07-06] MEDS ORDERED: Sodium Biphos-Phos 133 mL Enema RECTAL ONE (19:20)
[2016-07-06 20:02] VITALS: BP 103/68; PULSE 86; RESP 18; O2SAT 94
[2016-07-07] MEDS: Piperacillin-Tazo 3.375 Gm Inj 3.375 GM in Dextrose 5% Minibag Plus 50 ML IV SCH ×2 (01:05→09:12)
[2016-07-07] MEDS: Heparin 5,000 Unit/mL Inj SUBQ SCH ×3 (01:05→17:27)
[2016-07-07 05:18] VITALS: BP 101/62; PULSE 82; RESP 18; O2SAT 95
[2016-07-07] MEDS ORDERED: fentaNYL-PF 50 mCg/mL 2 mL Inj IVPUSH PRN ×2 (06:00→16:50)
[2016-07-07] MEDS ORDERED: Vancomycin Serum Trough XX ONE (06:30)
--- NOTE | 2016-07-07 11:16 | PCM.PNMED ---
Subjective Date of Service July 07, 2016 Subjective No problems overnight. Culture deltoid show MSSA. Renal function bit worse today. Patient says the deltoid region is feeling bit better. Exam Vital Signs Vital Sign - Last Date Time Temp Pulse Resp B/P Pulse Ox O2 Delivery O2 Flow Rate FiO2 07/07/16 05:18 36.6 82 18 101/62 95 Room Air 07/06/16 05:39 3.00 Intake and Output 07/06/16 07/06/16 07/07/16 Cumulative From/Thru 15:00 23:00 07:00 06/29/16 23:13 - 07/07/16 06:34 Intake Total 1348 ml 825 ml 20083 ml Output Total 1200 ml 1150 ml 17784 ml Balance 148 ml -325 ml 2850 ml Intake Oral 1280 ml 600 ml 83810 ml IV Total 68 ml 225 ml 33352 ml Output Urine Total 1200 ml 1150 ml 09828 ml # Voids 9 # Bowel Movements 0 1 1 Exam Eyes; jonathan, eom intact HENT; adequate hydration CV; reg, soft sustolic murmur 1/6 Lungs; clear anterioraly GI; soft non tender Skin: pale, bandages to right upper arm, clean Neuro; cn 2-12 intact no splinter hemorrhages, or other stigmata of endocarditis Lab and Diagnostics Result Diagram: 07/04/16 0630 07/07/16 0617 Microbiology SUKHDEEP CULT URINE Final 07/02/16-0906 Organism 1 ESCHERICHIA COLI U COLONY COUNT/QUANTITY >100,000 CFU/ml Cefazolin-predicts results for the oral agents, cefaclor,cefdinir, cefpodoximen, cefprozil, cefuroximne axetil, cephalexin and loracarbed when used for therapy of uncomplicated UTI's due to E. coli, K. pneumoniae, and Proteus mirabilis. Cefpodoxime, cefdinir and cefuroxime axetil may be tested individually because some isolates may be susceptible to these agents while testing resistant to cefazolin. (CLSI [id number] pg 53) 1. ESCHERICHIA COLI M.I.C Interp --------- ------ * AMOXICILLIN/CLAVULATE <=2 S * AMPICILLIN 8 S * CEFAZOLIN (CEPHALOSPORIN) UTI 4 S * CEFEPIME <=1 S * CEFTRIAXONE <=1 S * CEFUROXIME SODIUM 4 S * CIPROFLOXACIN <=0.25 S * ERTAPENEM <=0.5 S * GENTAMICIN <=1 S * IMIPENEM <=1 S * LEVOFLOXACIN <=0.12 S * NITROFURANTOIN <=16 S * TETRACYCLINE <=1 S * TOBRAMYCIN <=1 S * TRIMETHOPRIM/SULFAMETHOXAZOLE <=20 S X-Rays, CTs and MRIs CT KUB IMPRESSION: 1. Slightly prominent right kidney with stranding around it in the retroperitoneum. There is also slight increased density in the mesentery in the stranding appears to arise from the region of the kidney extends down in the retroperitoneum in the area of the cecum. No appendix is identified normal or abnormal. Hydronephrosis is not appreciated and no obstruction or ureteral stone is seen. There is a 2 mm central nonobstructing right renal calculus. These findings would suggest right-sided pyelonephritis. Clinical correlation needed. 2. Bilateral prominent appearing ovaries with multiple small probably follicular type cysts. Dictated by: Petros Buchanan M.D. on 06/30/2016 at 7:50 this report corresponds to the findings of the preliminary NSR report. X-RAY CHEST ONE VIEW IMPRESSION: No acute cardiopulmonary disease. Dictated by: Ryan Pruitt RR Interpreted: Petros Buchanan MD on 06/30/2016 at 11:33 Assessment & Plan Miri Beasley is a 26 year old woman with past medical history significant for kidney stones since age 9 requiring percutaneous drainage, recurrent pyelonephritis, as well as polysubstance abuse including heroin IVDU who presented to the [facility] ED with hematuria for 6 days. Now under treatment for sepsis, pyelonephritis, myxedema. 1. Severe pyelonephritis, poa, improving -likely secondary to nephrolithiasis, complicated by acute kidney injury. s/p one dose of ceftriaxone in the ED without any reaction -Antibiotic day4, switched Zosyn to IM ceftriaxone to narrow coverage, cultures indicating Escherichia coli, pansensitive. However due to the loss of IV access for this patient we are forced to go with it IM route. We will proceed with 500 mg of IM ceftriaxone to be given into each buttock cheek once daily. -At this point central venous access will likely cause more harm than good for 1 -2 days more of IV antibiotics thus we will forego it. -change antibiotic to Ancef today (renl concerns) 2. Probable abscess Right Upper Arm, poa, active -nasal MRSA negative -7-9 cc pus brown; gram pos and gram neg variable rods -stop Zosyn, discontinued vanco, -change antibiotics to Ancef 2. Acute kidney injury, present on admission, worse today -May be multifactorial from prerenal azotemia, sepsis, pyelonephritis, medication, etc -As she has lost her IV access we will encourage by mouth intake of fluids. -creatinine up to 1.73 today -urine eosinophils negative -d/c zosyn, ns at 60/hour, renal ultrasound, bmp in am 3. Myxedema, present on admission, improving -Dr. Samuel endocrinology was consulted. We thank him for his time and expertise. -Continue loading dose of PO levothyroxine 300 mg 3 days until tomorrow, please decrease dosage tomorrow, ~1.7 mcg/kg/day, appreciate input -Reiterated to the patient the importance of compliance and follow-up with her severe hypothyroidism. 4. Sepsis poa, resolved -secondary to pyelonephritis evidenced by HR of 106, T 36.0, present on admission -lactate initially trended up then normalized. -Blood cultures negative 2 days, urine cultures as above 5. Acute Hepatitis C infection, present on admission, active -This likely explains the patient's upper trend in LFTs -Hepatitis C genotype ordered as well as viral load -She will need to establish with a primary care provider as well as with a GI doctor upon discharge. -repeat cmp 6. Polysubstance abuse -Social work consult, she is scheduled to see a air traffic control specialist -Patient would like to discuss methadone for discharge. 7. Livido reticularis, chronic -Possibly due to thyroid disease or IV drug abuse. 8. Protein malnutrition -Likely due to poor intake, ordered nutritional consultation -Total protein decreased once patient is fluid resuscitated 9. Elevated troponin of uncertain significance, present on admission, resolved -In the setting of IVDU may represent endocarditis however EKG and CXR were unremarkable 10. Nicotine use -Patch offered 11. 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 GI Prophylaxis: Not indicated VTE Prophylaxis: Sub-Q Heparin (Unfractionated) VTE Mechanical Devices: Venous Foot Pump Resuscitation Status: CPR: Attempt Resuscitation Jim Graham MD July 07, 2016 11:16
--- NOTE | 2016-07-07 13:36 | DRSVH ---
PROCEDURE: US RETROPERITONEAL SONOGRAM ([id number]) INDICATIONS: hematuria, progressive renl failure TECHNIQUE: Real-time scanning was performed of the kidneys and bladder, with image documentation. COMPARISON: None. FINDINGS: Kidneys: Kidneys are normal in size. Right kidney measures 10.6 cm long; left kidney measures 10.6 cm long. Right renal cortical thickness is 1.0 cm; left renal cortical thickness is 1.6 cm. Renal c ortical echotexture is normal. No hydronephrosis or nephrolithiasis. No suspicious solid mass lesio ns. Bladder: Urinary bladder decompressed and suboptimally visualized. Miscellaneous: No free pelvic fluid. IMPRESSION: Normal kidneys. Dictated by: Ryan NUNN Interpreted: Rashid Correa MD on 07/07/2016 at 13:35 Transcribed by: TAE on 07/07/2016 at 13:36 Approved by: Jaime Correa M.D. on 07/07/2016 at 13:47
[2016-07-07 14:12] VITALS: BP 109/74; PULSE 73; RESP 19; O2SAT 95
[2016-07-07] MEDS: CeFAZolin Inj 1 GM in IV Premix 1 EACH IV SCH ×2 (14:40→18:31)
[2016-07-07 16:20] VITALS: BP 116/85; PULSE 73; RESP 16; O2SAT 97
[2016-07-07] MEDS ORDERED: CeFAZolin Inj 1 GM in IV Premix 1 EACH IV SCH (16:30)
[2016-07-07] MEDS ORDERED: Lactated Ringer's 500 ML IV PRN (16:46)
[2016-07-07] MEDS ORDERED: Lactated Ringer's 1,000 ML IV SCH (16:46)
[2016-07-07] MEDS ORDERED: EPHEDrine Sulfate 50 mg/mL Inj IVPUSH PRN (16:50)
[2016-07-07] MEDS ORDERED: Phenylephrine 10,000 mCg/mL Inj IVPUSH PRN (16:50)
[2016-07-07] MEDS ORDERED: Labetalol 5 mg/mL 4 mL Inj IV PRN (16:50)
[2016-07-07] MEDS ORDERED: 0.9% Sodium Chloride 1,000 ML IV ONE (16:51)
--- NOTE | 2016-07-07 16:58 | PCM.HPANE ---
Patient Data Surgeon Admitting Provider:Mauro Ragland MD Attending Provider:Mauro Ragland MD Primary Care Physician:[facility] Other Provider: Reason for Visit Pyelonephritis,Iv Heroin Use,Meth Use,Anemia Ht/WT & BMI Height (Feet): 4 Height (Inches): 11.00 Weight (Kilograms): 57.100 Body Mass Index 27.64 Allergies Coded Allergies: cefaclor (Verified Allergy, Intermediate, muscle rigidity, 06/30/16) Past Anesthesia History Anesthesia History: Denies:: Abnormal Airway, Anesthesia Reactions, Difficult Intubation Diabetes History Hx Diabetes?: No MRSA MRSA: No Medications Hypertension Medication: No Home Meds Incl Beta Amadou: No Reported Medications Levothyroxine (Synthroid)125 Mcg [id number] Mcg PO DAILY Ref 0 06/30/16 History History of ENT Problems?: No HEENT History: Denies:: Abnormal Airway Cataracts Difficult Intubation Dysphagia Glaucoma Hearing Problem Sinus Problem TMJ Denture Type: None Teeth Condition: Broken Teeth Tooth Decay Missing Teeth Hx of Heart Problems?: Yes Cardiovascular History: Denies:: Cardiac Surgery Chest Pain Congestive Heart Failure Edema Heart Murmur Hypertension Irregular Heartbeat Pacemaker Thrombophlebitis Hx of Respiratory Problem?: No Respiratory History: Denies:: Tuberculosis Other Resp Pertinent History: marijuana smoking occasional Hx Neurologic Problems?: Yes Neurological History: Denies:: Alzheimer's Disease CVA Dementia Dizziness Headaches Parkinson's Disease Seizures (Pt. thinks she has seizures "when I'm coming down" from heroin) Hx of GI Problems?: Yes Hx of Problems?: Yes Genitourinary History: Positive for:: Kidney Stones (recurrent, lithotripsy) Urinary Tract Infection (recurrent) Denies:: HX of Hemodialysis HX of Peritoneal Dialysis: No Other Pertinent History: recent urinary incontinence Female Hx: Denies:: Currently Endometriosis Pelvic Inflammatory Problems with Breasts? Skin History: Positive for:: History Skin Disorders? (multiple abscesses from "muscle-ing" heroin) Hx Musculoskeletal Problems?: No Hx of Psycho/Social Problems?: Yes Psycho Social History: Positive for:: Anxiety (with heroin use ) Hx Depression (with heroin use) Denies:: Bipolar Disorder Suicide Attempt Hx Surgeries?: Yes (appy, tonsils, lithotripsy) Hx Any Other Health Problems?: Yes Other History: Positive for:: Hospitalization (pyelo) Thyroid Disease Denies:: Cancer History Blood Transfusions: Positive for:: Accept Blood Products? Denies:: Blood Transfusions Hx Diabetes: No Hx Alcohol Use: NoHx Substance Use: Yes (IV heroin, meth, marijuana) Smoking Status: Current Every Day Smoker Heavy Tobacco Smoker Have You Smoked inLast 12 mo: NoApprox How Many Cigarettes/day: 30 Stop/Bang Treated for Sleep Apnea?: No Do You Have a CPAP Machine?: No S-Snoring: Do You Snore Loudly: No T-Tired: feel tired, fatigued: No O-Obsered: Observed not breath: No P-Blood Pressure: treated: No B- Body Mass Index > 35 kg/m2: No A- Age over 50: No N- Neck Large Circumference: Yes G- Gender Male: No ALPHONSE Total Score: 1 ALPHONSE Risk Assessment: Low Risk, <3 Yes Risk Assessment Category Category 1A: Patient has history of documented sleep apnea, and HAS NOT received any narcotic, sedative or anesthesia administration during this stay. Category 1B: Patient has history of documented sleep apnea, and HAS received any narcotic , sedative or anesthesia administration during this stay Category 2: Patient has SUSPECTED Obstructive Sleep Apnea, and HAS received any narcotic , sedative or anesthesia administration during this stay. Category 3: Patient has SUSPECTED Obstructive Sleep Apnea and HAS NOT received narcotic, sedative or anesthesia administration during this stay. Category 4: Outpatient in Procedural Areas with known sleep apnea or who screen positive for High Risk via the STOP/BANG questionnaire. Low Risk, <3 Yes Exam Exam Vital Signs Vital Signs Date Time Temp Pulse Resp B/P Pulse Ox O2 Delivery O2 Flow Rate FiO2 07/07/16 14:12 36.7 73 19 109/74 95 Room Air General Appearance: Oriented X3, Cooperative, No Acute Distress, Other (sedated ) HEENT/AIRWAY: MP 3, Neck Movement (FROM), Mouth Opening (3), Other (TMD3) Lungs: Clear to Auscultation Heart: Regular Rate/Rhythm, No Murmurs/Rubs/Gallops Meds/Labs/Diagnostics Admission Meds Current Medications Sodium Biphosphate/ Sodium Phosphate 133 ml 133 ml ONCE ONCE RECTAL Last administered on 07/06/16t 20:13; Start 07/06/16 at 19:20; Stop 07/06/16 at 19:21 ; Status DC Cefazolin Sodium/ Dextrose/Premix (Ancef Inj/IV Premix) 50 ml @ 100 mls/hr Q8H IV Last administered on 07/07/16t 14:40; Start 07/07/16 at 11:30 Labs Test 06/30/16 01:15 06/30/16 13:03 07/01/16 03:20 07/01/16 12:00 Prothrombin Time 11.1sec (8.1-12.5) Prothromb Time International Ratio 1.04ratio Lipase 13U/L (13-60) HCG Beta Subunit < 0.500mIU/mL Urine Color Dark yellow (YELLOW) Urine Appearance Cloudy (CLEAR,HAZY) Urine pH 5.5 (5.0-8.0) Urine Specific [place] 1.020 (1.003-1.035) Urine Protein 100mg/dL (NEG,TRACE) Urine Glucose (UA) Negativemg/dL (NEGATIVE) Urine Ketones Negativemg/dL (NEGATIVE) Urine Occult Blood Large (NEGATIVE) Urine Nitrite Positive (NEGATIVE) Urine Bilirubin Negative (NEGATIVE) Urine Urobilinogen Normalmg/dL (NORMAL) Urine Leukocyte Esterase Trace (NEGATIVE) Urine RBC Packed/hpf (0-2) Urine WBC 11-50/hpf (0-5) Urine Epithelial Cells Occasional/hpf (NONE-MOD) Urine Crystals None seen (NONE SEEN) Urine Bacteria Few/hpf (NONE-FEW) Urine Hyaline Casts None/lpf (NONE) Urine Granular Casts None seen (NONE SEEN) Urine Waxy Casts None seen (NONE SEEN) Urine Red Blood Cell Casts None seen (NONE SEEN) Urine White Blood Cell Casts None seen (NONE SEEN) Urine Mucus None seen (None Seen) Urine Trichomonas None seen (NONE SEEN) Urine Yeast None (NONE SEEN) Urinalysis Comment None Urine Culture Reflexed Indicated Urine Opiates Screen Positive Urine Methadone Screen Negative Urine Barbiturates Screen Negative Urine Amphetamines Screen Positive Urine Benzodiazepines Screen Negative Urine Cocaine Metabolite Screen Negative Urine Cannabinoids Screen Positive Lactic Acid Level 0.9mmol/L (0.4-2.0) Direct Bilirubin 0.2mg/dL (0.0-0.3) Thyroid Stimulating Hormone (TSH) 427.400uIU/mL (0.450-4.500) Free Thyroxine < 0.10ng/dL (0.82-1.77) Hepatitis A IgM Antibody Negative (Negative) Hepatitis B Surface Antigen Negative (Negative) Hepatitis B Core IgM Antibody Negative (Negative) Hepatitis C Antibody >11.0s/co ratio Hepatitis C Antibody Comment Comment (.) HIV (1&2) Ag and Ab, 4th Generation Non reactive (Non Reactive) Troponin T < 0.010ug/L (0.0-0.011) Test 07/02/16 16:10 07/04/16 06:30 07/05/16 07:15 07/06/16 14:49 White Blood Count 9.4th/mm3 (3.8-10.1) Red Blood Count 2.79mil/mm3 (3.90-5.20) Hemoglobin 8.6g/dL (12.0-15.6) Hematocrit 27.0% (35.0-46.0) Mean Corpuscular Volume 96.8fL (81-100) Mean Corpuscular Hemoglobin 30.8pg (27.0-35.0) Mean Corpuscular Hemoglobin Concent 31.9% (32.0-37.0) Red Cell Distribution Width 13.6% (12.3-15.4) Platelet Count 476bil/L (150-400) Neutrophils (%) (Auto) 63.9% (40-74) Lymphocytes (%) (Auto) 26.0% (14-46) Monocytes (%) (Auto) 6.6% (4-12) Eosinophils (%) (Auto) 1.4% (0-5) Basophils (%) (Auto) 0.6% (0-3) Phosphorus Level 3.6mg/dL (2.5-4.9) Magnesium Level 2.3mg/dL (1.6-2.6) Total Bilirubin 0.3mg/dL (0.0-1.2) Aspartate Amino Transf (AST/SGOT) 208U/L (0-50) Alanine Aminotransferase (ALT/SGPT) 143U/L (0-32) Alkaline Phosphatase 566U/L (25-150) Total Protein 8.2g/dL (6.4-8.4) Albumin 3.8g/dL (3.4-5.0) Procalcitonin 0.13ng/mL (0.00-0.08) Hold Urine Received (Received) Test 07/07/16 06:17 Sodium Level 142mEq/L (134-144) Potassium Level 4.5mEq/L (3.5-5.2) Chloride Level 98mEq/L (97-108) Carbon Dioxide Level 31mmol/L (18-29) Blood Urea Nitrogen 18mg/dL (6-20) Creatinine 1.73mg/dL (0.57-1.00) Estimat Glomerular Filtration Rate 50mL/min (>59) Glucose Level 88mg/dL (60-99) Calcium Level 9.3mg/dL (8.5-10.1) Plan Impression Patient chart reviewed, patient interviewed and anesthestic plan with risks, benefits, and alternatives discussed, and informed consent obtained. NPO per Anesth. Guidelines: Yes ASA Physical Status: ASA3 Severe Disease (IV drug abuse) Anesthetic Plan: GA, MAC Bene/Risks/Altern/Consents: Yes HP Complete Prior to Induction: Yes Huber Caballero MD July 07, 2016 15:55
--- NOTE | 2016-07-07 16:59 | PCM.ANEP1 ---
Post Anesthesia Phase 1 PACU Phase 1 Assessment Date of Service: July 06, 2016 Vital Signs Vital Signs Date Time Temp Pulse Resp B/P Pulse Ox O2 Delivery O2 Flow Rate FiO2 07/07/16 14:12 36.7 73 19 109/74 95 Room Air Anesthetic Administered: GA Level of Alertness: Awake, talking SANDOVAL's with Equal Strength: Yes Pain: No Pain Scale Score: 0 Nausea or Vomiting: No Oxygen Delivery: Simple Mask Lungs: Clear to Auscultation Dermatome Level: Full Sensation Complications: No Follow up Care: No Huber Caballero MD July 07, 2016 16:58
[2016-07-07 17:00] VITALS: BP 108/75; PULSE 76; RESP 17; O2SAT 96
[2016-07-07] MEDS: 0.9% Sodium Chloride 1,000 ML IV SCH ×3 (17:21→21:23)
--- NOTE | 2016-07-07 17:40 | DRSVH ---
[facility] [address] [place] [address] Echocardiogram Report Name: FITO SIMPSON Date: 12/2016 Height: 59 in Hospital Exam Location: [facility] Weight: 126 lb Gender: Female BSA: 1.5 m2 : 1990 Age: 26 yrs BP: 101/62 mmHg Reason For Study: Endocarditis Ordering Physician: Performed By: Marko Graham Interpretation Summary No evidence for endocarditis. Procedure: Informed consent for Transesophageal Echocardiogram, and use of a contrast agent as needed, was obtained prior to the procedure. The patient was brought to the [facility] in a fasting state. A 2D transesophageal echocardiogram with spectral and color flow Doppler was performed. An intravenous line was placed. A topical anesthetic agent was used for oropharangeal anesthesia. A bite block was inserted. Sedation was managed by anesthesiologist; see anesthesiology notes for details. The transesophageal probe was passed without difficulty. The usual views were obtained; basal, mid-esophageal, transgastric and aortic views. The patient's vital signs, including blood pressure, heart rate, pulse oximetry and cardiac rhythm were monitored throughout the procedure and remained stable. The patient tolerated the procedure well without evidence of orophangeal or esophageal trauma. ECG was abandoned due to poor contact. There were no complications. Left Ventricle: The left ventricle is normal in size, wall thickness, and systolic function without any focal wall motion abnormalities. The ejection fraction is estimated to be 60-65%. Right Ventricle: The right ventricle is normal in size, thickness and function. Atria: The left atrium grossly appears normal in size. The right atrium grossly appears normal in size. There is no Doppler evidence for an interatrial shunt. Mitral Valve: The mitral valve is normal. Redundant elongated chordae are noted. There is no vegetation seen on the mitral valve. Aortic Valve: The aortic valve is normal in structure and function. There is no aortic valvular vegetation. Tricuspid Valve: The tricuspid valve is normal. There is no tricuspid valve vegetation. Pulmonic Valve: The pulmonic valve is normal in structure and function. There is no vegetation on the pulmonic valve. Great Vessels: The aortic root is normal size. The dimensions of the ascending aorta are normal. Reading Physician:SHELTON
[2016-07-07 20:32] VITALS: BP 105/68; PULSE 72; RESP 19; O2SAT 92
--- NOTE | 2016-07-07 21:00 | PROG NOTE ---
[address] [address] PROGRESS NOTE PATIENT: FITO SIMPSON : 1990 MR#: [id number] ADMIT: 06/30/2016 JOB ID: [id number] DATE: 07/07/2016 Patient is postop day two, incision and drainage of arm abscess. The wound is clean, per nursing and wound care report. She continues to remain on antibiotics primarily for pyelonephritis.
[2016-07-08] MEDS: 0.9% Sodium Chloride 1,000 ML IV SCH (00:18)
[2016-07-08] MEDS: Heparin 5,000 Unit/mL Inj SUBQ SCH ×2 (00:18→08:35)
[2016-07-08] MEDS: CeFAZolin Inj 1 GM in IV Premix 1 EACH IV SCH ×2 (02:54→12:09)
[2016-07-08] MEDS: Ondansetron 8 mg ODT Tablet PO PRN (03:01)
[2016-07-08 06:04] VITALS: BP 107/72; PULSE 84; RESP 18; O2SAT 95
--- NOTE | 2016-07-08 12:03 | PCM.DIMED ---
Discharge Instructions Date of Service July 08, 2016 Dates of Hospitalization June 30, 2016 at 07:21 Discharge Diagnosis Discharge Diagnosis 1. Severe pyelonephritis, poa, resolved 2. Abscess Right Upper Arm, poa, improving drained 3. Acute kidney injury, present on admission, improving 4. Myxedema, present on admission, improving 5. Sepsis poa, resolved 5. Acute Hepatitis C infection, present on admission, active 6. Polysubstance abuse 7. Livido reticularis, chronic 8. Protein malnutrition 10. tobacco use disorder Patient Instructions 1- Call [facility] [place] [facility]- appt [facility] 07/11/16 at 4 pm Follow-up plan please follow up with your clinic in [place] or new physician here. Wound care per eduction today Follow-up with PCP in: 1 week Follow-up in: 1 week Jim Graham MD July 08, 2016 12:03
[2016-07-08] MEDS ORDERED: LEVO125T2 PO (12:06)
[2016-07-08] MEDS ORDERED: CEPH-512 PO (12:06)
--- NOTE | 2016-07-08 12:13 | PCM.DC.MED ---
Discharge Summary Date of Service July 08, 2016 Dates of Hospitalization Date of Hospital Admission June 30, 2016 at 07:21 Date of Discharge: July 08, 2016 Providers: Admitting Physician: Mauro Ragland MD [facility]: Mauro Ragland MD Diagnosis at Time of Discharge Diagnosis at Time of Discharge 1. Severe pyelonephritis, poa, resolved 2. Abscess Right Upper Arm, poa, improving drained 3. Acute kidney injury, present on admission, improving 4. Myxedema, present on admission, improving 5. Sepsis poa, resolved 5. Acute Hepatitis C infection, present on admission, active 6. Polysubstance abuse 7. Livido reticularis, chronic 8. Protein malnutrition 10. tobacco use disorder Procedures XRay, CTs & MRIs CT KUB IMPRESSION: 1. Slightly prominent right kidney with stranding around it in the retroperitoneum. There is also slight increased density in the mesentery in the stranding appears to arise from the region of the kidney extends down in the retroperitoneum in the area of the cecum. No appendix is identified normal or abnormal. Hydronephrosis is not appreciated and no obstruction or ureteral stone is seen. There is a 2 mm central nonobstructing right renal calculus. These findings would suggest right-sided pyelonephritis. Clinical correlation needed. 2. Bilateral prominent appearing ovaries with multiple small probably follicular type cysts. Dictated by: Petros Buchanan M.D. on 06/30/2016 at 7:50 this report corresponds to the findings of the preliminary NSR report. X-RAY CHEST ONE VIEW IMPRESSION: No acute cardiopulmonary disease. Dictated by: Ryan Pruitt [facility] Interpreted: Petros Buchanan MD on 06/30/2016 at 11:33 PROCEDURE: US RETROPERITONEAL SONOGRAM ([id number]) INDICATIONS: hematuria, progressive renl failure TECHNIQUE: Real-time scanning was performed of the kidneys and bladder, with image documentation. COMPARISON: None. FINDINGS: Kidneys: Kidneys are normal in size. Right kidney measures 10.6 cm long; left kidney measures 10.6 cm long. Right renal cortical thickness is 1.0 cm; left renal cortical thickness is 1.6 cm. Renal cortical echotexture is normal. No hydronephrosis or nephrolithiasis. No suspicious solid mass lesions. Bladder: Urinary bladder decompressed and suboptimally visualized. Miscellaneous: No free pelvic fluid. IMPRESSION: Normal kidneys. Dictated by: Ryan Pruitt A Interpreted: Rashid Correa MD on 07/07/2016 at 13: 35 Brief History The patient carries a diagnosis of hypothyroidism which began at age 7. She is taken thyroid hormone since that time. She has also experience substance abuse and psychological difficulties; hence, her compliance with thyroxine replacement therapy has been variable. She states that she has been without thyroid hormone for at least 2 months. She has difficulty describing hypothyroid symptoms but feels that her current mental confusion and fatigue may be due to low thyroid hormone. She is otherwise symptomatic with flank pain and abdominal discomfort related to recurrent urinary infection. On thyroid review of systems: She feels mentally sluggish. She endorses variable heat and cold intolerance. She notes increased puffiness around her eyes which is not normal for her. Her skin is dry. She does not endorse constipation. Menstrual periods have been irregular for many years. Hospital Course Miri Beasley is a 26 year old woman with past medical history significant for kidney stones since age 9 requiring percutaneous drainage, recurrent pyelonephritis, as well as polysubstance abuse including heroin IVDU who presented to the [facility] ED with hematuria for 6 days. Now under treatment for sepsis, pyelonephritis, myxedema. 1. Severe pyelonephritis, poa, improving -likely secondary to nephrolithiasis, complicated by acute kidney injury. s/p one dose of ceftriaxone in the ED without any reaction -Antibiotic day4, switched Zosyn to IM ceftriaxone to narrow coverage, cultures indicating Escherichia coli, pansensitive. However due to the loss of IV access for this patient we are forced to go with it IM route. We will proceed with 500 mg of IM ceftriaxone to be given into each buttock cheek once daily. -Patient dc today 2. Probable abscess Right Upper Arm, poa, improving -nasal MRSA negative -7-9 cc pus brown; gram pos and gram neg variable rods -stop Zosyn, discontinued vanco, -cdischarge today on Keflex 500 qid for 5 days -wound nurse educating patient 2. Acute kidney injury, present on admission, improving -May be multifactorial from prerenal azotemia, sepsis, pyelonephritis, medication, etc -As she has lost her IV access we will encourage by mouth intake of fluids. -creatinine down to 1.1.37 today -urine eosinophils negative -I wanted to keep patient in hospital one more day for further IV hydration to improve her kidney function however patient refuses and want to leave AMA. 3. Myxedema, present on admission, improving -Dr. Samuel endocrinology was consulted. We thank him for his time and expertise. -Continue loading dose of PO levothyroxine 300 mg 3 days until tomorrow, please decrease dosage tomorrow, ~1.7 mcg/kg/day, appreciate input -Reiterated to the patient the importance of compliance and follow-up with her severe hypothyroidism. -dc on synthroid .125 daily, needs thyroid check 3-4 weeks 4. Sepsis poa, resolved -secondary to pyelonephritis evidenced by HR of 106, T 36.0, present on admission -lactate initially trended up then normalized. -Blood cultures negative 2 days, urine cultures as above 5. Acute Hepatitis C infection, present on admission, active -This likely explains the patient's upper trend in LFTs -Hepatitis C genotype ordered as well as viral load -She will need to establish with a primary care provider as well as with a GI doctor upon discharge. 6. Polysubstance abuse -Social work consult, she is scheduled to see a desktop specialist -Patient would like to discuss methadone for discharge. -out patient follow u[p arranged for patient 7. Livido reticularis, chronic -Possibly due to thyroid disease or IV drug abuse. 8. Protein malnutrition -Likely due to poor intake, ordered nutritional consultation -Total protein decreased once patient is fluid resuscitated 9. Elevated troponin of uncertain significance, present on admission, resolved -In the setting of IVDU may represent endocarditis however EKG and CXR were unremarkable 10. Nicotine use -Patch offered 11. Possible endocarditis mitral valve, poa, active -2 blood cultures negative to date -echo with filamentous mobile structure PMVL, [place], infectious) -IVAN OK no evidence of Endocarditis Exam Vital Signs (Last) Date Time Temp Pulse Resp B/P Pulse Ox O2 Delivery O2 Flow Rate FiO2 07/08/16 07:30 Supplement Oxygen 07/08/16 06:04 36.0 84 18 107/72 95 07/06/16 05:39 3.00 Test 06/30/16 01:15 06/30/16 13:03 07/01/16 03:20 07/01/16 12:00 Prothrombin Time 11.1sec (8.1-12.5) Prothromb Time International Ratio 1.04ratio Lipase 13U/L (13-60) HCG Beta Subunit < 0.500mIU/mL Urine Color Dark yellow (YELLOW) Urine Appearance Cloudy (CLEAR,HAZY) Urine pH 5.5 (5.0-8.0) Urine Specific [place] 1.020 (1.003-1.035) Urine Protein 100mg/dL (NEG,TRACE) Urine Glucose (UA) Negativemg/dL (NEGATIVE) Urine Ketones Negativemg/dL (NEGATIVE) Urine Occult Blood Large (NEGATIVE) Urine Nitrite Positive (NEGATIVE) Urine Bilirubin Negative (NEGATIVE) Urine Urobilinogen Normalmg/dL (NORMAL) Urine Leukocyte Esterase Trace (NEGATIVE) Urine RBC Packed/hpf (0-2) Urine WBC 11-50/hpf (0-5) Urine Epithelial Cells Occasional/hpf (NONE-MOD) Urine Crystals None seen (NONE SEEN) Urine Bacteria Few/hpf (NONE-FEW) Urine Hyaline Casts None/lpf (NONE) Urine Granular Casts None seen (NONE SEEN) Urine Waxy Casts None seen (NONE SEEN) Urine Red Blood Cell Casts None seen (NONE SEEN) Urine White Blood Cell Casts None seen (NONE SEEN) Urine Mucus None seen (None Seen) Urine Trichomonas None seen (NONE SEEN) Urine Yeast None (NONE SEEN) Urinalysis Comment None Urine Culture Reflexed Indicated Urine Opiates Screen Positive Urine Methadone Screen Negative Urine Barbiturates Screen Negative Urine Amphetamines Screen Positive Urine Benzodiazepines Screen Negative Urine Cocaine Metabolite Screen Negative Urine Cannabinoids Screen Positive Lactic Acid Level 0.9mmol/L (0.4-2.0) Direct Bilirubin 0.2mg/dL (0.0-0.3) Thyroid Stimulating Hormone (TSH) 427.400uIU/mL (0.450-4.500) Free Thyroxine < 0.10ng/dL (0.82-1.77) Hepatitis A IgM Antibody Negative (Negative) Hepatitis B Surface Antigen Negative (Negative) Hepatitis B Core IgM Antibody Negative (Negative) Hepatitis C Antibody >11.0s/co ratio Hepatitis C Antibody Comment Comment (.) HIV (1&2) Ag and Ab, 4th Generation Non reactive (Non Reactive) Troponin T < 0.010ug/L (0.0-0.011) Test 07/02/16 16:10 07/04/16 06:30 07/05/16 07:15 07/06/16 14:49 White Blood Count 9.4th/mm3 (3.8-10.1) Red Blood Count 2.79mil/mm3 (3.90-5.20) Hemoglobin 8.6g/dL (12.0-15.6) Hematocrit 27.0% (35.0-46.0) Mean Corpuscular Volume 96.8fL (81-100) Mean Corpuscular Hemoglobin 30.8pg (27.0-35.0) Mean Corpuscular Hemoglobin Concent 31.9% (32.0-37.0) Red Cell Distribution Width 13.6% (12.3-15.4) Platelet Count 476bil/L (150-400) Neutrophils (%) (Auto) 63.9% (40-74) Lymphocytes (%) (Auto) 26.0% (14-46) Monocytes (%) (Auto) 6.6% (4-12) Eosinophils (%) (Auto) 1.4% (0-5) Basophils (%) (Auto) 0.6% (0-3) Phosphorus Level 3.6mg/dL (2.5-4.9) Magnesium Level 2.3mg/dL (1.6-2.6) Total Bilirubin 0.3mg/dL (0.0-1.2) Aspartate Amino Transf (AST/SGOT) 208U/L (0-50) Alanine Aminotransferase (ALT/SGPT) 143U/L (0-32) Alkaline Phosphatase 566U/L (25-150) Total Protein 8.2g/dL (6.4-8.4) Albumin 3.8g/dL (3.4-5.0) Procalcitonin 0.13ng/mL (0.00-0.08) Hold Urine Received (Received) Test 07/08/16 06:05 Erythrocyte Sedimentation Rate 61mm/hr (0-32) Sodium Level 140mEq/L (134-144) Potassium Level 5.2mEq/L (3.5-5.2) Chloride Level 98mEq/L (97-108) Carbon Dioxide Level 30mmol/L (18-29) Blood Urea Nitrogen 18mg/dL (6-20) Creatinine 1.37mg/dL (0.57-1.00) Estimat Glomerular Filtration Rate 66mL/min (>59) Glucose Level 84mg/dL (60-99) Calcium Level 9.0mg/dL (8.5-10.1) Microbiology Results SUKHDEEP CULT URINE Final 07/02/16-905 Organism 1 ESCHERICHIA COLI U COLONY COUNT/QUANTITY >100,000 CFU/ml Cefazolin-predicts results for the oral agents, cefaclor,cefdinir, cefpodoximen, cefprozil, cefuroximne axetil, cephalexin and loracarbed when used for therapy of uncomplicated UTI's due to E. coli, K. pneumoniae, and Proteus mirabilis. Cefpodoxime, cefdinir and cefuroxime axetil may be tested individually because some isolates may be susceptible to these agents while testing resistant to cefazolin. (CLSI E955-V18 pg 53) 1. ESCHERICHIA COLI M.I.C Interp --------- ------ * AMOXICILLIN/CLAVULATE <=2 S * AMPICILLIN 8 S * CEFAZOLIN (CEPHALOSPORIN) UTI 4 S * CEFEPIME <=1 S * CEFTRIAXONE <=1 S * CEFUROXIME SODIUM 4 S * CIPROFLOXACIN <=0.25 S * ERTAPENEM <=0.5 S * GENTAMICIN <=1 S * IMIPENEM <=1 S * LEVOFLOXACIN <=0.12 S * NITROFURANTOIN <=16 S * TETRACYCLINE <=1 S * TOBRAMYCIN <=1 S * TRIMETHOPRIM/SULFAMETHOXAZOLE <=20 S Discharge Medications Discharge Medications Cephalexin (Keflex) 500 Mg Capsule 500 MG PO QID Prescribed by: Jim GRAHAM MD Levothyroxine (Synthroid) 125 Mcg Tablet 125 MCG PO DAILY Prescribed by: Jim GRAHAM MD Followup Plan Follow-up plan please follow up with your clinic in [place] or new physician here. Wound care per eduction today Follow-up with PCP in: 1 week Follow-up in: 1 week Time spent 34 minutes spent discharging this patient today so far Jim Graham MD July 08, 2016 12:13
== END 2016-07-08 13:18 | disposition home or self-care (01) | DRG 854 ==
LOC: SED 23:09 → PCC 06-30 07:21 → MPC 07-02 23:07
PROVIDERS: ADMIT Hospitalist; ATTEND Hospitalist
PROC: 0J9F0ZZ Drainage of Left Upper Arm Subcutaneous Tissue and Fascia, Open Approach (ICD-10-PCS; principal; 2016-07-05 16:00)
PROC: B24BZZ4 Ultrasonography of Heart with Aorta, Transesophageal (ICD-10-PCS; 2016-07-07)
DX: A41.9 Sepsis, unspecified organism (principal); N10 Acute pyelonephritis; N17.9 Acute kidney failure, unspecified; E46 Unspecified protein-calorie malnutrition; B17.10 Acute hepatitis C without hepatic coma; L02.414 Cutaneous abscess of left upper limb; N20.0 Calculus of kidney; D64.9 Anemia, unspecified; R31.9 Hematuria, unspecified; Z59.0 Homelessness; E03.9 Hypothyroidism, unspecified; Z87.442 Personal history of urinary calculi; F11.10 Opioid abuse, uncomplicated; R23.1 Pallor; Z68.25 Body mass index [BMI] 25.0-25.9, adult; B96.20 Unspecified Escherichia coli [E. coli] as the cause of diseases classified elsewhere; F15.90 Other stimulant use, unspecified, uncomplicated; F12.90 Cannabis use, unspecified, uncomplicated; F17.210 Nicotine dependence, cigarettes, uncomplicated; R79.89 Other specified abnormal findings of blood chemistry